=== PATIENT | female | born 1935 | race Caucasian/White ===

== ENCOUNTER → 2017-03-13 | Outpatient (CLI) | payer BC ==
[~2017-03-13] MED LIST: ASPI-435 PO; ATEN50TA8 PO; CIPR-255 PO; FLUN0.02 NAE; FLUT0.15 NAE; FURO-85 PO; HYDR-5688 PO; OMEG10007 PO; TRAM-453 PO
--- NOTE | 2017-03-13 16:17 | MAMMOGRAPHY REPORT ---
BILATERAL DIGITAL DIAGNOSTIC MAMMOGRAM TOMOSYNTHESIS WITH CAD AND TARGETED LEFT ULTRASOUND: 03/13/2017 CLINICAL HISTORY: 81-year-old woman presents with a palpable lump in the upper outer anterior left br east. There is a raised shiny skin lesion involving the upper outer 1:00 axis of the areola. No rep orted nipple discharge. TECHNIQUE: Bilateral breast tomosynthesis in addition to standard 2D mammography was performed. Curre nt study was also evaluated with a Computer Aided Detection (CAD) system. COMPARISON: Comparison is made to exams dated: 09/23/2012 mammogram, 09/21/2011 mammogram, 0 mammogram, 09/16/2009 mammogram - [facility], 09/15/2008, and 09/12/2007. BREAST COMPOSITION: The tissue of both breasts is heterogeneously dense, which may obscure small mas ses. FINDINGS: A triangular skin palpable marker overlies the upper outer anterior left breast. On the C C view, there is skin thickening appreciated. There is also thickening adjacent to the nipple in the anterior aspect of the left breast. Best appreciated on the MLO view but seen on both CC and MLO pr ojections on the tomosynthesis images, is a focal area of architectural distortion correlating with t he palpable area with central masslike area that measures 7 x 10 x 5 mm. A second more subtle questi onable area of architectural distortion is seen in the superior middle one third of the left breast, 6 cm posterior to the nipple on the MLO tomosynthesis slice 16. An increasingly prominent 6.4 x 9.9 mm asymmetry is seen in the posterior superior left breast on the MLO view, 9 cm posterior to the nip ple. There are stable coarse benign-appearing calcifications in the superior left breast. A nodular asymmetry in the medial, middle one third of the left breast on the CC view appears similar dating b ack to the 2008 exam, but appears somewhat masslike on the current exam tomosynthesis images measurin g 9.1 x 6.4 mm. Therefore, further evaluation with ultrasound will be performed throughout the super ior, lateral and medial aspects of the left breast. The right breast bregma pattern is similar to al l available prior mammograms. No obvious new mass, focal area of architectural distortion or suspici ous calcifications are seen. There are mild vascular calcifications within the right breast. Targeted ultrasound was performed throughout the left breast and also the left axilla. In the area o f palpable lump, in the 1:00 left breast, 1 cm from the nipple, there is an ill-defined hypoechoic ta ller than wide shadowing vascular mass with echogenic halo measuring 4.8 x 12.1 x 7.3 mm. This corre lates as palpated and with the focal mass and associated architectural distortion seen mammographical ly in the anterior upper outer left breast. Additional ultrasound was performed throughout the entire left breast. A second solid lobulated hypo echoic mass is identified in the approximate 2:00 left breast, 3 cm from the nipple, measuring 8.2 x 6.0 x 9.7 mm. No other discrete solid or cystic mass is seen in the left breast on ultrasound. A mo rphologically normal lymph node is seen in the left axilla with a cortex measuring 1.7 mm. In partic ular, no sonographic correlate was seen for the 9 mm nodular asymmetry in the medial, middle one thir d of the left breast and no definite correlate was seen for the 9.9 x 5.4 mm asymmetry in the superio r posterior left breast on the MLO view. No other suspicious mass, architectural distortion or cluster of microcalcifications is seen. IMPRESSION: ACR BI-RADS CATEGORY 5: HIGHLY SUGGESTIVE OF MALIGNANCY, TARGETED ULTRASOUND ACR BI-RADS CATEGORY 5: HIGHLY SUGGESTIVE OF MALIGNANCY 1. Ultrasound guided core needle biopsy is recommended for a suspicious taller than wide spiculated shadowing 12 mm mass in the 1:00 anterior left breast, that correlates with the palpable lump identif ied by the patient. Given the additional finding of thickening of the left areola near this lump it is concerning for skin and nipple/areola complex involvement. 2. A second solid suspicious mass was seen in the 2:00 left breast, which differs in morphology from the palpable mass in the 1:00 axis. This is also suspicious, warranting further evaluation with ult rasound-guided core biopsy. 3. A lymph node seen in the left axilla has a cortex within the range of normal thickness, without e vidence of suspicious lymphadenopathy. 4. Nodular asymmetries seen in the superior posterior left breast on the MLO view, and medial left b reast on the CC view had no sonographic correlate on today's ultrasound. These findings remain indet erminate. Will await pathology results and if the patient is considering breast conservation therapy , additional imaging and/or stereotactic guided biopsy may be needed. 5. Stable mammographic appearance of the right breast, without mammographic evidence of malignancy. These results and recommendations were discussed with the patient at the time of the exam. She tenta tively scheduled the left breast biopsies prior to leaving our department. Approximately 10% of breast cancers are not detected with mammography. A negative mammographic report should not delay biopsy if a clinically suggestive mass is present. Doreen Miranda M.D. ay/:03/13/2017 13:50:41 Oxygen Therapist: Linda RAZA(Elsa)(Jaja), [facility] letter sent: Abnormal 4/5 BI-RADS Code: ACR BI-RADS Category 5: Highly Suggestive Of Malignancy Ultrasound BI-RADS: ACR BI-RAD S Category 5: Highly Suggestive Of Malignancy
== END | disposition home or self-care (01) ==
LOC: C.MAMM 11:11
PROVIDERS: ATTEND Internal Medicine
DX: R92.8 Other abnormal and inconclusive findings on diagnostic imaging of breast (principal); N63 Unspecified lump in breast; N64.89 Other specified disorders of breast

== ENCOUNTER → 2017-03-15 | Outpatient (CLI) | payer BC ==
--- NOTE | 2017-03-15 13:20 | Discharge Instructions ---
Discharge Instructions Procedure Procedure Date: Mar 15, 2017. Reason for visit: Left Masses. Discharge Discharge Date: Mar 15, 2017. Discharge Diagnosis: status post breast biopsy Instructions Activity Recommendations: Additional Limitations (see below) Return to School/Work: no limitations Recommended Home Diet: No Limitations Provider Instructions: ACTIVITY RECOMMENDATIONS: * No lifting, pushing, pulling or exercising the affected side for three days. RETURN TO SCHOOL/WORK: * You may return to work/school after the procedure, but do not perform any strenuous activities for 24 to 48 hours. MEDICATIONS: * Tylenol (two 325 mg) every four to six hours if needed for mild pain (if not allergic to Tylenol). DIET: * Resume previous diet. SPECIAL CARE INSTRUCTIONS: * Keep biopsy site dry for 24 hours. May shower after 24 hours, but do not soak (bathe) incision. * May remove Tegaderm (plastic patch) tomorrow AFTER showering. * Leave the steri-strips on for one week. Allow the steri-strips to fall off by themselves. If not off after one week, you may remove them. You may place a Bandaid crosswise over the strips, if desired. * Apply ice 10 minutes on and 10 minutes off as needed. * Wear a bra at bedtime to sleep more comfortably for 2-3 days. * Your referring physician should have the results after approximately 5 to 7 business days. * Call for unusual bleeding, fever, drainage, etc or if you have any questions call during normal business hours or after hours call Dr Katz, . FOLLOW UP VISIT: Follow-up with Referring Physician as scheduled. Allergies Coded Allergies: Penicillins (Verified Allergy, Severe, THROAT SWELLING, BREATHING PROBLEMS , 01/21/16) Shellfish (Verified Allergy, Severe, BREATHING PROBLEMS, VOMITING, 01/21/16 ) Iodinated Diagnostic Agents (Unverified Allergy, Unknown, UNKNOWN, 01/21/16 ) Naga Dangelo Recommendations: Call your doctor if: * Temperature above 101 degrees * Pain not relieved by pain medicine ordered * There is increased drainage or redness from any incision * You have any unanswered questions or concerns. Your Doctors Instructions noted above were prepared by provider Eileen Katz. Patient Signature Section: Patient Instructions Signature Page Juana Arroyo Patient (or Guardian) Signature/Date: I have read and understand the instructions given to me by my caregivers. Caregiver/RN/Doctor Signature/Date: The above-named patient and/or guardian has received patient instructions on this date. + Original Patient Signature Page (only) stays with chart. Please make copy for patient.
--- NOTE | 2017-03-15 14:42 | MAMMOGRAPHY REPORT ---
THIS REPORT HAS BEEN AMENDED. ULTRASOUND GUIDED BIOPSY LEFT BREAST: 03/15/2017 CLINICAL HISTORY: Left 1:00 breast mass. PATIENT CONSENT: The procedure, risks and benefits were discussed with the patient and informed writt en consent was obtained. A timeout was performed immediately prior to the procedure. PROCEDURE DESCRIPTION: With ultrasound guidance, aseptic technique, and lidocaine as the local anesth etic (1% lidocaine to anesthetize the skin and 1% lidocaine with epinephrine to anesthetize the deepe r tissues), the mass of concern in the left 1:00 breast (labeled mass "A") was sampled 4 times with a 14-gauge Achieve biopsy needle. Immediately thereafter, with ultrasound guidance, aseptic techniqu e, and lidocaine as the local anesthetic, a metallic localizer clip was placed centrally in the mass. Direct pressure was applied to the site immediately post procedure and hemostasis was achieved. Po stprocedure unilateral mammograms were performed to confirm placement of the clip in the expected loc ation of the breast mass. The patient tolerated the procedure without complication. She was given w ound care instructions. The specimens were sent to pathology for analysis. COMPARISON: Comparison is made to exams dated: 03/13/2017 ultrasound, 03/13/2017 mammogram, 09/23/2012 m ammogram, 09/21/2011 mammogram, 09/20/2010 mammogram, and 09/16/2009 mammogram - [facility]. IMPRESSION: ULTRASOUND GUIDED BIOPSY Ultrasound guided core needle biopsy of the left 1:00 breast mass (mass "A"), with clip placement. T he patient will receive pathology results from her referring provider. Eileen Katz M.D. ah/:03/15/2017 13:21:59 Media Planner: Linda RAZA(Elsa)(Jaja), [facility] AMENDMENT: 03/21/2017 Eileen Katz M.D. Pathology results from ultrasound guided biopsies of the left breast were reviewed on 03/21/2017. 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 The pathology is concordant with the michelle ging findings. Recommend surgical consultation. Consider bilateral breast MRI if breast conserving therapy is being considered, given the presence of asymmetries seen within the left superior and medi al breast mammographically which had no sonographic correlate and therefore remain indeterminate for malignancy.
--- NOTE | 2017-03-15 14:42 | MAMMOGRAPHY REPORT ---
ULTRASOUND GUIDED BIOPSY LEFT BREAST: 03/15/2017 CLINICAL HISTORY: Left 2:00 breast mass. PATIENT CONSENT: The procedure, risks and benefits were discussed with the patient and informed writt en consent was obtained. A timeout was performed immediately prior to the procedure. PROCEDURE DESCRIPTION: With ultrasound guidance, aseptic technique, and lidocaine as the local anesth etic (1% lidocaine to anesthetize the skin and 1% lidocaine with epinephrine to anesthetize the deepe r tissues), the mass of concern in the left 2:00 breast (labeled mass "B") was sampled 4 times with a 14-gauge achieve biopsy needle. Immediately thereafter, with ultrasound guidance, aseptic technique , and lidocaine as the local anesthetic, a metallic localizer clip was placed centrally in the mass. Direct pressure was applied to the site immediately post procedure and hemostasis was achieved. Pos tprocedure unilateral mammograms were performed to confirm placement of the clip in the expected loca tion of the breast mass. The patient tolerated the procedure without complication. She was given wo und care instructions. The specimens were sent to pathology for analysis. COMPARISON: Comparison is made to exams dated: 03/13/2017 mammogram, 09/23/2012 mammogram, 09/21/2011 mammogram, and 03/13/2017 ultrasound - [facility]. IMPRESSION: ULTRASOUND GUIDED BIOPSY Ultrasound guided core needle biopsy of the left 2:00 breast mass (mass "B"), with clip placement. T he patient will receive pathology results from her referring provider. Eileen Katz M.D. ah/:03/15/2017 13:23:23 Internal Grinder Set Up Operator: Linda CAMPBELL)(Jaja), [facility]
--- NOTE | 2017-03-15 14:44 | MAMMOGRAPHY REPORT ---
UNILATERAL LEFT DIGITAL DIAGNOSTIC MAMMOGRAM: 03/15/2017 CLINICAL HISTORY: Status post left breast biopsies. TECHNIQUE: Postprocedural left CC and ML views were obtained. COMPARISON: Comparison is made to exams dated: 03/13/2017 ultrasound, 03/13/2017 mammogram, 09/23/2012 m ammogram, 09/21/2011 mammogram, and 09/16/2009 mammogram - [facility]. BREAST COMPOSITION: The tissue of the left breast is heterogeneously dense, which may obscure small masses. FINDINGS: A new ribbon-shaped biopsy marker clip is seen at the site of the biopsied mass in the lef t 1:00 breast anteriorly. A new wing-shaped biopsy marker clip is seen at the site of the biopsied e ft 2:00 breast mass. The 2 clips at approximately 2.4 cm apart. No significant postbiopsy hematoma is seen. IMPRESSION: POST PROCEDURE IMAGING FOR MARKER PLACEMENT New biopsy marker clips status post left breast ultrasound guided biopsies 2. Pathology results are pending. Approximately 10% of breast cancers are not detected with mammography. A negative mammographic report should not delay biopsy if a clinically suggestive mass is present. Eileen Katz M.D. /:03/15/2017 13:31:13 Prison Guard Supervisor: Linda RAZA(Elsa)(M), [facility] BI-RADS Code: Post Procedure Imaging For Marker Placement
== END | disposition home or self-care (01) ==
LOC: C.MAMM 12:41
PROVIDERS: ATTEND Internal Medicine
DX: C50.912 Malignant neoplasm of unspecified site of left female breast (principal)

== ENCOUNTER → 2017-04-24 | Outpatient (CLI) | payer BC ==
[~2017-04-24] MED LIST changes: +GADAVIST IV PRN
--- NOTE | 2017-04-24 15:59 | MAMMOGRAPHY REPORT ---
BREAST MRI OF BOTH BREASTS : 04/24/2017 CLINICAL HISTORY: Recently diagnosed left breast cancer in the 1:00 and 2:00 axes. Additional asymme tries are identified mammographically for which no sonographic correlates were identified. Patient p resents for definitive characterization prior to surgery, and to assess for extent of disease. COMPARISON: Comparison is made to exams dated: 03/15/2017 ultrasound biopsy, 03/15/2017 ultrasound biops y, 03/13/2017 ultrasound, 03/13/2017 mammogram, 09/23/2012 mammogram, and 09/21/2011 mammogram - [facility]. TECHNIQUE: Using a 1.5 Carito magnet and dedicated breast coil, multisequence axial images were obtain ed through the breasts. After uneventful IV administration of 7 mL of Gadavist, dynamic multiphase c ontrast-enhanced axial images, and sagittal postcontrast were obtained. Temporal subtraction axial i mages and 3-D MIP images are provided. Everything was then reviewed on a 3-D workstation, [employer]. FINDINGS: Right breast: There is no significant background parenchymal enhancement. No suspicious enhancing ma ss, non-mass enhancement, focal area of architectural distortion or suspicious kinetics are identifie d in the right breast. No right axillary, subpectoral intramammary lymph adenopathy is seen. Left breast: There are at least 5 suspicious enhancing masses within the left breast, all of which ap pear located within the upper outer quadrant, but one of which involves the nipple areola complex. T he masses span from the nipple into the 12:00 far posterior aspect of the left breast located [address] to the nipple. In particular: There is an irregular enhancing, 4.7 x 6.5 x 5.1 mm mass in the 1 2:00 posterior left breast. A small, 2.8 x 4.4 mm focus of enhancement and associated architectural distortion in the 12:30 middle to posterior left breast approximately 7.5 cm distal to the nipple. A multilobulated, 6.1 x 8.0 x 16.6 mm mass in the approximate 2:00 left breast. This mass has adjacen t susceptibility artifact and likely represents the biopsy marker clip. It has associated mixed pers istent, plateau and washout kinetics. Another mass with associated susceptibility artifact represent ing a biopsy marker clip is identified in the 1:00 anterior left breast. This has associated spicula tion and architectural distortion, measuring 11.8 x 8.5 x 6.3 mm, and associated persistent kinetics. There is thickening and enlargement of the left nipple when compared to the right, with associated enhancement and probable enhancing mass within the nipple and skin of the areola measuring approximat pradeep 19.3 x 8.4 x 9.2 m. This has associated persistent, plateau and washout kinetics. No suspicious left axillary, subpectoral or internal mammary lymphadenopathy is seen. Incidental note is made of a 2.3 cm T2 hyperintense nonenhancing cyst within the anterior liver. Thi s was previously described on a prior abdominal ultrasound report. IMPRESSION: ACR BI-RADS CATEGORY 4B: INTERMEDIATE SUSPICION FOR MALIGNANCY 1. There are at least 5 suspicious enhancing masses in the left breast confined to the upper outer q uadrant, compatible with multifocal disease. One of the masses is seen within the left nipple and ar eola complex and the most distal is located in the 12:00 axis, 9 cm from the nipple. If breast conse rvation therapy is desired, would consider targeted second look ultrasound and ultrasound guided core biopsy to evaluate for the most distal mass in the 12:00 axis, 9 cm from the nipple, for confirmatio n. 2. No suspicious left or right axillary, subpectoral or internal mammary lymphadenopathy. 3. No MRI evidence of malignancy in the right breast. The patient will be called to schedule an appointment. Doreen Miranda M.D. ay/:04/24/2017 15:39:59 Energy Consultant: leather flesher, [facility] letter sent: Abnormal 4/5 BI-RADS Code: ACR BI-RADS Category 4B: Intermediate Suspicion For Malignancy
== END | disposition home or self-care (01) ==
LOC: C.MRI 08:32
PROVIDERS: ATTEND Surgery
DX: C50.919 Malignant neoplasm of unspecified site of unspecified female breast (principal); N63 Unspecified lump in breast

== ENCOUNTER 2017-05-09 08:30 | Inpatient (IN) | payer BC, OTHER ==
[2017-04-26 13:42] VITALS: BMI 22.0
--- NOTE | 2017-04-26 14:08 | PAT Medication Instructions ---
Service Date Apr 26, 2017. Current Home Medication List Aspirin (Aspirin 81), 81 MG PO 2XWEEK Atenolol (Tenormin), 50 MG PO Q2D Furosemide (Lasix), 20 MG PO PRN Medication Instructions For Your Scheduled Surgery - Check with surgeon for instructions: Aspirin (Aspirin 81), 81 MG PO 2XWEEK - Hold the following medications the morning of surgery: Furosemide (Lasix), 20 MG PO PRN - Take the following medications the morning of surgery with a sip of water: Atenolol (Tenormin), 50 MG PO Q2D - Take the following medications as scheduled the night before surgery: Furosemide (Lasix), 20 MG PO PRN If you have any questions please call us at [phone] or [phone] or [phone]
[~2017-05-09] VITALS: Ht 170.2 cm; Wt 64.8 kg
[2017-05-09] VITALS (7 sets, daily range): BP systolic 155–202; BP diastolic 67–81; PULSE 63–76; TEMP 36.4–37.2; O2SAT 94–98; Ht 170.2 cm; Wt 64.8 kg
[~2017-05-09 08:30] MED LIST changes: -CIPR-255 PO; +CLINDAMYCIN IV 900 MG in DEXTROSE 5% 100ML 100 ML IV SCH; -FLUN0.02 NAE; -FLUT0.15 NAE; -GADAVIST IV PRN; -HYDR-5688 PO; +LACTATED RINGER'S 1000ML 1,000 ML IV SCH; -OMEG10007 PO; -TRAM-453 PO
[2017-05-09] MEDS ORDERED: FENTANYL CITRATE INJ 50 MCG/1 ML 2 ML VIAL ONE ×3 (08:53→11:56)
[2017-05-09] MEDS ORDERED: DEXAMETHASONE SOD INJ 4 MG/ML VIAL ONE (08:53)
[2017-05-09] MEDS ORDERED: ONDANSETRON INJ 2 MG/ML 2 ML VIAL ONE (08:53)
[2017-05-09] MEDS ORDERED: PROPOFOL IV EMULSION 10 MG/ML 20 ML VIAL IV ONE (08:53)
[2017-05-09] MEDS ORDERED: LIDOCAINE HCL 2% 2 ML VIAL (20MG/ML) ONE (08:53)
[2017-05-09] MEDS ORDERED: EpHEDrine SULFATE INJ 50 MG/ML AMP IV PRN (09:30)
[2017-05-09] MEDS ORDERED: HYDROmorphone INJ 1 MG/ML SYR IV PRN (09:30)
[2017-05-09] MEDS ORDERED: ONDANSETRON INJ 2 MG/ML 2 ML VIAL IV PRN ×2 (09:30→12:45)
[2017-05-09] MEDS ORDERED: ATROPINE SULFATE 0.1 MG/ML 5ML SYR IV PRN (09:30)
--- NOTE | 2017-05-09 09:53 | DIAGNOSTIC IMAGING REPORT ---
LEFT BREAST LYMPHOSCINTIGRAPHY INJECTION CLINICAL HISTORY: Left breast carcinoma COMPARISON STUDY: None FINDINGS: A timeout was performed. 5 periareolar injections utilizing a total of 0.5 mCi of technetium 99m Lymphoseek were performed. The patient was sent to the operating room for intraoperative localization. IMPRESSION: Successful left breast lymphoscintigraphy injection. Electronically signed by: Abdullahi Ware M.D. 05/09/2017 9:52 AM Dictated Date/Time: 05/09/2017 9:50 AM
[2017-05-09] MEDS ORDERED: ISOSULFAN BLUE 10 MG/ML VIAL 5 ML ONE (10:08)
[2017-05-09] MEDS ORDERED: BUPIVACAINE 0.5 % 5 MG/1 ML MPF 30ML VIAL ONE (10:08)
--- NOTE | 2017-05-09 10:10 | History & Physical Bridge Note ---
H&P Re-Evaluation Bridge Note: I have examined the patient, reviewed the History & Physical and in the interval since the performance of the History & Physical I have noted the following changes of clinical significance: No changes noted
[2017-05-09] MEDS ORDERED: LACTATED RINGER'S 1000ML 1,000 ML IV SCH (12:32)
--- NOTE | 2017-05-09 12:32 | [facility] Operative Report ---
Operative Report Operative Date May 09, 2017. Pre-Operative Diagnosis Left Breast Cancer Post-Operative Diagnosis Left Breast Cancer Procedure(s) Performed Left Breast Mastectomy with Left [place] Lymph Node Biopsy (Injection Only) and Lt axillary dissection Surgeon Nuclear Operator Surgeon(s) Roberto Corbin PA-C Estimated Blood Loss 20 ML Findings 2 SLNs- 1 mm focus of carcinoma Specimens B. Left axillary tissue silk suture on superior lymph node Drains 2- #15 Rd ONEL drains Anesthesia gen Complication(s) None Disposition Recovery Room / PACU I attest to the content of the Intraoperative Record and any orders documented therein. Any exceptions are noted below.
[2017-05-09] MEDS ORDERED: HYDROCODONE/ACETAMOPHEN 5/325MG TAB PO PRN ×2 (12:45)
[2017-05-09] MEDS ORDERED: MoRPHine SULFATE 4 MG/ML 1 ML CARP\\VIAL IV PRN (12:45)
[2017-05-09] MEDS ORDERED: MoRPHine SULFATE 2 MG/ML CARP IV PRN (12:45)
[2017-05-09] MEDS ORDERED: LABETALOL HCL IV 5 MG/ML 20ML IV ONE (13:08)
[2017-05-09] MEDS: FENTANYL CITRATE INJ 50 MCG/1 ML 2 ML VIAL IV PRN ×3 (13:21→13:38)
--- NOTE | 2017-05-09 13:26 | OPERATIVE REPORT ---
DATE OF OPERATION: 05/09/2017 NAME OF OPERATION: Left mastectomy with sentinel lymph node biopsy and left axillary dissection. PREOPERATIVE DIAGNOSIS: Left breast cancer. POSTOPERATIVE DIAGNOSIS: Same. STAFF SURGEON: Dr. Obinna Bray. LICENSE AND PERMIT SPECIALIST: Minh Corbin PA-C ANESTHESIA: General. DESCRIPTION OF PROCEDURE: The patient was brought into the operating room and placed on the operating table in supine position. Her left chest and axilla were prepped and draped in the usual fashion. The patient had injection and radiology for sentinel lymph node biopsy. Incision was made in the left axilla, carrying dissection down, identifying the sentinel lymph node. Two nodes were actually identified and sent. There was a 1-mm focus of metastatic carcinoma within the lymph nodes. At the end of the case, we did do a completion axillary dissection with additional tissue sent. The highest lymph node or superior lymph node had a silk suture placed on it. During the frozen section, we did proceed with mastectomy, making an elliptical incision around the nipple areolar complex to the sternum from the axilla and then dissecting the breast tissue away from the subcutaneous tissue superiorly and inferiorly to construct superior and inferior skin flaps. The breast tissue was dissected away from the pectoralis major muscle, taking the fascia. The specimen was marked as left breast tissue with a long silk suture lateral. The site was irrigated. Two #15 Dilip-Arizmendi drains were placed, 1 in the chest wall and 1 into the axilla and secured to the skin using 3-0 nylon suture. As a note again, completion left axillary dissection was performed. The subcutaneous tissue was reapproximated using interrupted 3-0 Vicryl suture. Skin reapproximated using 4-0 Monocryl suture and interrupted 4-0 nylon suture in the axilla. Steri-Strips were applied and dressing applied. The patient was transferred to recovery room in stable condition. I attest to the content of the Intraoperative Record and any orders documented therein. Any exception s are noted below.
--- NOTE | 2017-05-09 13:49 | Anesthesiology Progress Note ---
Anesthesia Post Op Note Date & Time May 09, 2017 at 13:48 Vital Signs Pain Intensity: 4 Vital Signs Past 12 Hours Date Time Temp Pulse Resp B/P (MAP) Pulse Ox O2 Delivery O2 Flow Rate FiO2 05/09/17 12:37 36.5 97 12 170/83 99 Mask 10 05/09/17 09:34 37.2 63 18 202/72 (115) 96 Room Air Notes Mental Status: alert / awake / arousable, participated in evaluation Pt Amnestic to Procedure: Yes Nausea / Vomiting: adequately controlled Pain: adequately controlled Airway Patency, RR, SpO2: stable & adequate BP & HR: stable & adequate Hydration State: stable & adequate Anesthetic Complications: no major complications apparent
--- NOTE | 2017-05-09 15:52 | Medical Consult ---
Consultation Date of Consultation: May 09, 2017. Attending Physician: Obinna Bray M.D. Reason for Consultation: Post-operative Medical Management History of Present Illness Mrs. Arroyo is a pleasant 81yo female with a history of hypertension and left breast cancer s/p left breast mastectomy w/ left sentinel node biopsy and left axillary dissection under general anesthesia by Dr. Bray on 05/09/17. Hospitalist service was consulted for general medical management. Daughter is at the bedside. Currently, she is pain-free without any complaints. Denies shortness of breath. Dressing is comfortable. Denies fever, chills, cp, palpitations, sob, abdominal pain, n/v/d, numbness/ tingling or calf pain. Her only reported medical history is HTN. She states that she takes Atenolol, approximately every other days. The states that some days she gets slightly lightheaded and attributes this to the medication and as such has structured her regimen in this manner. She also takes ASA 2 days per week, on no particular schedule. States it is for prevention only. She has no history of coronary artery disease or cardiac stenting. She also takes Lasix PRN only for leg and abdominal swelling though at this time, she denies feeling any fullness. Past Medical/Surgical History Medical Problems: (1) Epistaxis Status: Acute (2) Post-operative hemorrhage Status: Acute Family History Patient reports no known family medical history. Social History Smoking Status: Never Smoker Smokeless Tobacco Use: No Alcohol Use: none Drug Use: none Marital Status: Housing Status: lives with significant other Occupation Status: retired Allergies Coded Allergies: Penicillins (Verified Allergy, Severe, THROAT SWELLING, BREATHING PROBLEMS , 05/09/17) Shellfish (Verified Allergy, Severe, BREATHING PROBLEMS, VOMITING, 05/09/17) DO Inhibitors (Verified Allergy, Unknown, UNKNOWN, 05/09/17) Angiotensin Receptor Blockers (Verified Allergy, Unknown, UNKNOWN, 05/09/17) Calcium Channel Blockers (Verified Allergy, Unknown, UNKNOWN, 05/09/17) Hydrochlorothiazide (Verified Allergy, Unknown, UNKNOWN, 05/09/17) Iodinated Diagnostic Agents (Verified Allergy, Unknown, BREATHING PROBLEMS VOMITING, 05/09/17) Home Medications 1. Atenolol 50mg PO every other day, but holds for shortness of breath 2. Aspirin 81mg PO twice a week 3. Furosemide 20mg PO prn edema Current Inpatient Medications Current Inpatient Medications Medications (Trade) Dose Ordered Sig/Patricia Route Start Time Stop Time Status Last Admin Dose Admin Clindamycin Phosphate 900 mg/ Dextrose 106 ml @ 106 mls/hr PREOP IV 05/09/17 06:00 05/10/17 05:59 05/09/17 10:35 106 MLS/HR Atenolol (Tenormin Tab) 50 mg Q2D@0900 PO 05/11/17 09:00 06/10/17 08:59 Lactated Ringer's 1,000 ml @ 50 mls/hr Q20H IV 05/09/17 12:32 05/09/17 16:00 Clindamycin Phosphate 600 mg/ Dextrose 54 ml @ 100 mls/hr Q8H IV 05/09/17 18:00 05/19/17 17:59 Acetaminophen/ Hydrocodone Bitart ([place] 5/325 Tab) 1 tab Q4 PRN PO 05/09/17 12:45 05/23/17 12:44 Acetaminophen/ Hydrocodone Bitart ([place] 5/325 Tab) 2 tab Q4 PRN PO 05/09/17 12:45 05/23/17 12:44 Morphine Sulfate (MoRPHine SULFATE INJ) 2 mg Q4H PRN IV 05/09/17 12:45 05/23/17 12:44 Morphine Sulfate (MoRPHine SULFATE INJ) 4 mg Q4H PRN IV 05/09/17 12:45 05/23/17 12:44 Ondansetron HCl (Zofran Inj) 4 mg Q6H PRN IV 05/09/17 12:45 06/08/17 12:44 Review of Systems Constitutional: No fever, No chills Eyes: No worsening of vision, No diplopia ENT: No sore throat, No trouble swallowing Respiratory: No cough, No shortness of breath Cardiovascular: No chest pain, No palpitations Abdomen: No pain, No nausea, No vomiting, No diarrhea Musculoskeletal: No joint pain, No calf pain Neurologic: No paralysis, No numbness/tingling Physical Exam Date Time Temp Pulse Resp B/P (MAP) Pulse Ox O2 Delivery O2 Flow Rate FiO2 05/09/17 14:42 75 16 182/80 (114) 96 Nasal Cannula 2.0 05/09/17 14:10 Nasal Cannula 2.0 05/09/17 14:10 36.4 76 18 170/81 (110) 94 Nasal Cannula 2.0 2/17 14:10 Nasal Cannula 2.0 05/09/17 13:57 76 32 05/09/ 13:57 76 32 94 2/17 13:56 165/78 05/09/17 13:52 74 24 2/17 13:52 74 24 95 05/09/17 13:51 168/76 05/09/17 13:50 36.6 75 18 168/76 97 Nasal Cannula 2 05/09/17 13:47 75 18 96 05/09/17 13:47 75 18 05/09/17 13:46 177/76 05/09/17 13:42 76 21 95 05/09/17 13:42 76 21 05/09/17 13:41 169/76 05/09/17 13:37 75 21 05/09/17 13:37 75 21 97 05/09/17 13:36 171/80 05/09/17 13:32 78 17 05/09/17 13:32 79 17 95 05/09/17 13:31 172/95 05/09/17 13:27 74 23 05/09/17 13:27 74 23 96 05/09/17 13:26 178/85 05/09/17 13:22 76 20 05/09/17 13:22 76 20 95 05/09/17 13:21 177/78 05/09/17 13:17 75 18 95 05/09/17 13:17 75 18 05/09/17 13:16 173/85 05/09/17 13:12 74 18 94 05/09/17 13:12 74 18 17 13:11 174/87 05/09/17 13:07 74 28 05/09/17 13:07 73 28 94 05/09/ 13:06 189/81 05/09/17 13:02 73 31 05/09/17 13:02 73 31 94 05/09/17 13:01 175/87 05/09/17 12:57 74 27 05/09/17 12:57 74 27 97 2 12:56 191/88 05/09/17 12:52 73 22 17 12:52 73 22 96 05/09/17 12:51 192/86 05/09/17 12:47 73 18 97 05/09/17 12:47 73 18 05/09/17 12:46 196/91 05/09/17 12:42 72 25 100 05/09/17 12:42 72 25 05/09/17 12:41 189/87 05/09/17 12:38 170/83 05/09/17 12:37 73 17 05/09/17 12:37 73 17 99 05/09/17 12:37 36.5 97 12 170/83 99 Mask 10 05/09/17 09:34 37.2 63 18 202/72 (115) 96 Room Air General Appearance: WD/WN, no apparent distress Head: normocephalic, atraumatic Eyes: normal inspection, EOMI ENT: hearing grossly normal, pharynx normal Neck: supple, no adenopathy, no JVD Respiratory/Chest: lungs clear, no respiratory distress, + pertinent finding ( Thorax wrapped in post-operative dressing; dry, intact, no evidence of discharge ) Cardiovascular: regular rate, rhythm, no gallop, no murmur Abdomen/GI: normal bowel sounds, non tender, soft Back: normal inspection, no muscle spasm Extremities/Musculoskelatal: no calf tenderness, no pedal edema Neurologic/Psych: alert, normal mood/affect, oriented x 3 Skin: normal color, warm/dry, no rash Lymphatic: no adenopathy Assessment & Plan This is a 81yo female with a history of hypertension and left breast cancer s/p left breast mastectomy w/ left sentinel node biopsy and left axillary dissection under general anesthesia by Dr. Bray on 05/09/17. Medically stable at this time. Our plan is as follows: Plan: Left breast cancer s/p left breast mastectomy w/ left sentinel node biopsy and left axillary dissection - Post-op day 0 - Dressing changes per surgery - Currently pain is well managed; titrate per primary surgical team - HOLD aspirin 81mg until discharge as patient is not using for secondary prevention of CAD - Encouraged incentive spirometry to improve airway clearance Hypertension - Elevated BP post-operative, systolic 180s - Pain appears to be well controlled; likely due to not having gotten dose - Will re-start atenolol 50mg PO every other day, hold for BP <100/60 or HR <60 If tomorrow BP remain elevated, additional dose can be given then Lower extremity edema - No evidence of edema at this time; continue watch in the setting of surgery and hemodynamic shifts - No need to give Lasix at this time; continue to hold at this time DVT prophylaxis - SCD - Encourage ambulate as tolerated - Hold pharmacological anticoagulation today as patient is immediately post-op. Can be re-started at discretion of primary surgical team Thank you for allowing us to participate in the care of this patient. We will continue to follow. Attending Addendum: I have supervised the medical residents activities, and agree with the H&P as noted above with the following exceptions: NONE The patient is awake, well-developed and adequately nourished, alert and oriented 3, normocephalic and atraumatic, lying in bed and in no acute distress. HEENT--PERRL, EOMI, mucous membranes and oropharynx dry. Neck--supple, no JVD or bruits, thyroid normal, trachea midline, no adenopathy. Heart--normal S1 and S2, no extra beats, no murmurs, rubs or gallops. Lungs/Thorax--clear bilaterally but diminished throughout, no respiratory distress, no accessory muscle use, thorax wrapped in postoperative dressing is clean, dry and intact. Abdomen--normal bowel sounds and soft, nontender and nondistended, no hernias or masses, no organomegaly. Extremities--no cyanosis, clubbing or edema. There are good distal pulses b/l. Dermatologic--normal skin turgor, normal color, warm and dry, no abnormal lymph nodes, no rash. Neurologic--cranial nerves II through XII grossly intact, motor and sensory examination normal. Rheumatologic--normal range of motion, nontender, muscles and joints. Psychiatric--normal affect. Assessment and Plan: 1. The patient is seen status post left breast mastectomy with left sentinel node biopsy and left axillary dissection for left breast cancer--medically stable. 2. Hypertension/lower extremity edema--restart atenolol 50 mg by mouth daily with usual hold parameters. Not necessary to restart aspirin 81 mg by mouth daily at this time. Edema may be in part secondary to increased hydrostatic pressure, would hold down sodium intake at this point, keep legs elevated when upright, and follow closely.
[2017-05-09] MEDS: CLINDAMYCIN IV 600 MG in DEXTROSE 5% 50ML 50 ML IV SCH (18:35)
[2017-05-10] MEDS: CLINDAMYCIN IV 600 MG in DEXTROSE 5% 50ML 50 ML IV SCH ×3 (01:48→17:55)
[2017-05-10 02:58] VITALS: BP 157/64; PULSE 65; TEMP 36.9; O2SAT 98
[2017-05-10 05:55] LABS: BUN/CREATININE RATIO 14.4 (10-20); CREATININE 0.79 mg/dl (0.60-1.20)
--- NOTE | 2017-05-10 06:01 | Surgery Progress Note ---
Surgery Progress Note Date of Service May 10, 2017. Subjective + feeling well, + pain controlled serosang drainage from JPs Objective Vital Signs: Date Time Temp Pulse Resp B/P (MAP) Pulse Ox O2 Delivery O2 Flow Rate FiO2 05/10/17 02:58 36.9 65 19 157/64 (95) 98 Room Air 05/09/17 23:28 Nasal Cannula 2.0 05/09/17 22:56 36.8 67 19 155/67 (96) 96 Nasal Cannula 2.0 05/09/17 19:14 36.7 67 16 166/69 (101) 95 Nasal Cannula 2.0 05/09/17 17:09 36.7 69 16 172/73 (106) 97 Nasal Cannula 2.0 05/09/17 15:19 36.8 72 18 178/73 (108) 98 Nasal Cannula 2.0 05/09/17 14:42 75 16 182/80 (114) 96 Nasal Cannula 2.0 05/09/17 14:10 Nasal Cannula 2.0 05/09/17 14:10 36.4 76 18 170/81 (110) 94 Nasal Cannula 2.0 05/09/17 14:10 Nasal Cannula 2.0 05/09/17 14:10 Nasal Cannula 2.0 05/09/17 13:57 76 32 05/09/17 13:57 76 32 94 05/09/17 13:56 165/78 05/09/17 13:52 74 24 05/09/17 13:52 74 24 95 05/09/17 13:51 168/76 05/09/17 13:50 36.6 75 18 168/76 97 Nasal Cannula 2 05/09/17 13:47 75 18 96 05/09/17 13:47 75 18 05/09/17 13:46 177/76 05/09/17 13:42 76 21 95 05/09/17 13:42 76 21 05/09/17 13:41 169/76 05/09/17 13:37 75 21 05/09/17 13:37 75 21 97 05/09/17 13:36 171/80 05/09/17 13:32 78 17 05/09/17 13:32 79 17 95 05/09/17 13:31 172/95 05/09/17 13:27 74 23 05/09/17 13:27 74 23 96 05/09/17 13:26 178/85 05/09/17 13:22 76 20 05/09/17 13:22 76 20 95 05/09/17 13:21 177/78 05/09/17 13:17 75 18 95 05/09/17 13:17 75 18 05/09/17 13:16 173/85 05/09/17 13:12 74 18 94 05/09/17 13:12 74 18 05/09/17 13:11 174/87 05/09/17 13:07 74 28 05/09/17 13:07 73 28 94 05/09/17 13:06 189/81 05/09/17 13:02 73 31 05/09/17 13:02 73 31 94 05/09/17 13:01 175/87 05/09/17 12:57 74 27 05/09/17 12:57 74 27 97 05/09/17 12:56 191/88 05/09/17 12:52 73 22 05/09/17 12:52 73 22 96 05/09/17 12:51 192/86 05/09/17 12:47 73 18 97 05/09/17 12:47 73 18 05/09/17 12:46 196/91 05/09/17 12:42 72 25 100 05/09/17 12:42 72 25 05/09/17 12:41 189/87 05/09/17 12:38 170/83 05/09/17 12:37 73 17 05/09/17 12:37 73 17 99 05/09/17 12:37 36.5 97 12 170/83 99 Mask 10 05/09/17 09:34 37.2 63 18 202/72 (115) 96 Room Air General Appearance: no apparent distress Respiratory/Chest: no respiratory distress Incision(s): dry, intact Laboratory Results: Results Past 24 Hours Test 05/10/17 04:29 Range/Units Sodium Level 138 136-145 mmol/L Potassium Level 5.0 3.5-5.1 mmol/L Chloride Level 103 98-107 mmol/L Carbon Dioxide Level 32 21-32 mmol/L Anion Gap 3.0 3-11 mmol/L Blood Urea Nitrogen 11 7-18 mg/dl Creatinine 0.79 0.60-1.20 mg/dl Est Creatinine Clear Calc Drug Dose 53.4 ml/min Estimated GFR () 80.8 Estimated GFR (Non- 69.7 BUN/Creatinine Ratio 14.4 10-20 Random Glucose 110 70-99 mg/dl Calcium Level 9.0 8.5-10.1 mg/dl Assessment & Plan 05/10/17- s/p Lt mastectomy with sentinel lymph node bx and Lt axillary dissection- overall doing well, minimal pain mobilize pt, cont atbx, leave drains- plan d/c 05/11
[2017-05-10 06:18] LABS: HEMATOCRIT 44.3 % (37-47); MEAN CELL VOLUME 88.2 fL (80-100); MEAN CORPUSCULAR HEMOGLOBIN 26.9 pg (25-34); MEAN CORPUSCULAR HGB CONC 30.5 g/dl (32-36); PLATELET COUNT 281 K/uL (130-400); PLT ESTIMATE NORMAL; RED BLOOD COUNT 5.02 M/uL (4.2-5.4); WHITE BLOOD COUNT 20.41 K/uL (4.8-10.8)
[2017-05-10 07:30] VITALS: BP 172/78; PULSE 62; TEMP 36.7; O2SAT 96
--- NOTE | 2017-05-10 08:39 | Anesthesiology Progress Note ---
Anesthesia Post Op Note Date & Time May 10, 2017 at 08:39 Vital Signs Pain Intensity: 0.0 Vital Signs Past 12 Hours Date Time Temp Pulse Resp B/P (MAP) Pulse Ox O2 Delivery O2 Flow Rate FiO2 05/10/17 07:30 36.7 62 14 172/78 (109) 96 Room Air 05/10/17 02:58 36.9 65 19 157/64 (95) 98 Room Air 05/09/17 23:28 Nasal Cannula 2.0 05/09/17 22:56 36.8 67 19 155/67 (96) 96 Nasal Cannula 2.0 Notes Mental Status: alert / awake / arousable Pt Amnestic to Procedure: Yes Nausea / Vomiting: adequately controlled Pain: adequately controlled Airway Patency, RR, SpO2: stable & adequate BP & HR: stable & adequate Hydration State: stable & adequate
--- NOTE | 2017-05-10 10:01 | Family Medicine Progress Note ---
Progress Note Date of Service May 10, 2017. Subjective Pt evaluation today including: conversation w/ patient, physical exam, chart review, lab review Pain: None PO Intake: Good Voiding: no voiding problems Doing well Pain well controlled Dr. Bray seen patient earlier today; no reported concerns at this time per his progress note Eating well; will try to ambulate today; no voiding issues Constitutional: No fever, No chills, No sweats Eyes: No worsening of vision, No eye pain, No redness ENT: No hearing loss, No unusual epistaxis, No nasal symptoms, No sore throat Respiratory: No cough, No sputum, No wheezing Cardiovascular: No chest pain, No orthopnea, No claudication, No palpitations Abdomen: No pain, No nausea, No vomiting, No diarrhea, No constipation Musculoskeletal: No joint pain, No muscle pain, No swelling Female : No dysuria, No urinary frequency Neurologic: No memory loss, No weakness, No numbness/tingling Psychiatric: No depression symptoms, No anxiety, No insomnia Heme: No abnormal bleeding/bruising, No clotting problems, No swollen lymph nodes Endo: No fatigue Skin: No rash, No new/changing skin lesions, No color change Medications Current Inpatient Medications Medications (Trade) Dose Ordered Sig/Patricia Route Start Time Stop Time Status Last Admin Dose Admin Atenolol (Tenormin Tab) 50 mg Q2D@0900 PO 05/11/17 09:00 06/10/17 08:59 Clindamycin Phosphate 600 mg/ Dextrose 54 ml @ 100 mls/hr Q8H IV 05/09/17 18:00 05/19/17 17:59 05/10/17 01:48 100 MLS/HR Acetaminophen/ Hydrocodone Bitart ([place] 5/325 Tab) 1 tab Q4 PRN PO 05/09/17 12:45 05/23/17 12:44 Acetaminophen/ Hydrocodone Bitart ([place] 5/325 Tab) 2 tab Q4 PRN PO 05/09/17 12:45 05/23/17 12:44 Morphine Sulfate (MoRPHine SULFATE INJ) 2 mg Q4H PRN IV 05/09/17 12:45 05/23/17 12:44 Morphine Sulfate (MoRPHine SULFATE INJ) 4 mg Q4H PRN IV 05/09/17 12:45 05/23/17 12:44 Ondansetron HCl (Zofran Inj) 4 mg Q6H PRN IV 05/09/17 12:45 06/08/17 12:44 Atenolol (Tenormin Tab) 25 mg NOW ONCE PO 05/10/17 10:00 05/10/17 10:01 Objective Vital Signs Date Time Temp Pulse Resp B/P (MAP) Pulse Ox O2 Delivery O2 Flow Rate FiO2 05/10/17 07:30 36.7 62 14 172/78 (109) 96 Room Air 05/10/17 02:58 36.9 65 19 157/64 (95) 98 Room Air 05/09/17 23:28 Nasal Cannula 2.0 05/09/17 22:56 36.8 67 19 155/67 (96) 96 Nasal Cannula 2.0 05/09/17 19:14 36.7 67 16 166/69 (101) 95 Nasal Cannula 2.0 05/09/17 17:09 36.7 69 16 172/73 (106) 97 Nasal Cannula 2.0 05/09/17 15:19 36.8 72 18 178/73 (108) 98 Nasal Cannula 2.0 05/09/17 14:42 75 16 182/80 (114) 96 Nasal Cannula 2.0 05/09/17 14:10 Nasal Cannula 2.0 05/09/17 14:10 36.4 76 18 170/81 (110) 94 Nasal Cannula 2.0 05/09/17 14:10 Nasal Cannula 2.0 05/09/17 14:10 Nasal Cannula 2.0 05/09/17 13:57 76 32 05/09/17 13:57 76 32 94 05/09/17 13:56 165/78 05/09/17 13:52 74 24 05/09/17 13:52 74 24 95 05/09/17 13:51 168/76 05/09/17 13:50 36.6 75 18 168/76 97 Nasal Cannula 2 05/09/17 13:47 75 18 96 05/09/17 13:47 75 18 05/09/17 13:46 177/76 05/09/17 13:42 76 21 95 05/09/17 13:42 76 21 05/09/17 13:41 169/76 05/09/17 13:37 75 21 05/09/17 13:37 75 21 97 05/09/17 13:36 171/80 05/09/17 13:32 78 17 05/09/17 13:32 79 17 95 05/09/17 13:31 172/95 05/09/17 13:27 74 23 05/09/17 13:27 74 23 96 05/09/17 13:26 178/85 05/09/17 13:22 76 20 05/09/17 13:22 76 20 95 05/09/17 13:21 177/78 05/09/17 13:17 75 18 95 05/09/17 13:17 75 18 05/09/17 13:16 173/85 05/09/17 13:12 74 18 94 05/09/17 13:12 74 18 05/09/17 13:11 174/87 05/09/17 13:07 74 28 05/09/17 13:07 73 28 94 05/09/17 13:06 189/81 05/09/17 13:02 73 31 05/09/17 13:02 73 31 94 05/09/17 13:01 175/87 05/09/17 12:57 74 27 05/09/17 12:57 74 27 97 05/09/17 12:56 191/88 05/09/17 12:52 73 22 05/09/17 12:52 73 22 96 05/09/17 12:51 192/86 05/09/17 12:47 73 18 97 05/09/17 12:47 73 18 05/09/17 12:46 196/91 05/09/17 12:42 72 25 100 05/09/17 12:42 72 25 05/09/17 12:41 189/87 05/09/17 12:38 170/83 05/09/17 12:37 73 17 05/09/17 12:37 73 17 99 05/09/17 12:37 36.5 97 12 170/83 99 Mask 10 Physical Exam General Appearance: WD/WN, no apparent distress Eyes: normal inspection, EOMI ENT: hearing grossly normal, pharynx normal Neck: supple, no adenopathy, no JVD Respiratory/Chest: lungs clear, no respiratory distress, + pertinent finding ( Thorax dressed; ONEL drains x 2 with mild bloody dischge; no pus) Cardiovascular: regular rate, rhythm, no gallop, no murmur Abdomen: normal bowel sounds, non tender, soft Extremities: non-tender, no pedal edema Neurologic/Psychiatric: alert, normal mood/affect, oriented x 3 Skin: normal color, warm/dry, no rash Lymphatic: no adenopathy Laboratory Results Last 24 Hours Test 05/10/17 04:29 White Blood Count 20.41 K/uL Red Blood Count 5.02 M/uL Hemoglobin 13.5 g/dL Hematocrit 44.3 % Mean Corpuscular Volume 88.2 fL Mean Corpuscular Hemoglobin 26.9 pg Mean Corpuscular Hemoglobin Concent 30.5 g/dl RDW Standard Deviation 67.8 fL RDW Coefficient of Variation 21.6 % Platelet Count 281 K/uL Platelet Estimate NORMAL Sodium Level 138 mmol/L Potassium Level 5.0 mmol/L Chloride Level 103 mmol/L Carbon Dioxide Level 32 mmol/L Anion Gap 3.0 mmol/L Blood Urea Nitrogen 11 mg/dl Creatinine 0.79 mg/dl Est Creatinine Clear Calc Drug Dose 53.4 ml/min Estimated GFR () 80.8 Estimated GFR (Non- 69.7 BUN/Creatinine Ratio 14.4 Random Glucose 110 mg/dl Calcium Level 9.0 mg/dl Assessment and Plan This is a 81 yo female with HTN, day 1 s/p left breast mastectomy w/ left sentinel node biopsy and left axillary dissection. Currently, she is doing very well at this time: Plan: Left breast cancer s/p left breast mastectomy w/ left sentinel node biopsy and left axillary dissection - Post-op day 1 - Dressing changes per surgery; encourage ambulation - Currently pain is well managed; titrate per primary surgical team - Continue holding ASA as she uses it elective Leukocytosis - WBC 20 today; no fevers or systemic ssx - Likely 2/2 steroid pre-operatively along with systemic stress of surgery; appears well - Recommend monitoring CBC daily Hypertension - Elevated BP post-operative, systolic 180s - Atenolol 50 mg started and tolerating well; improved to sBP 150s - Will give 25 mg Atenolol today - Can be discharged on home regimen Lower extremity edema - No evidence of edema at this time; continue watch in the setting of surgery and hemodynamic shifts - No need to give Lasix at this time; continue to hold at this time DVT prophylaxis - SCD - Ambulation as tolerated - Hold pharmacological anticoagulation today as patient is immediately post-op. Can be re-started at discretion of primary surgical team Continued [facility] stay due to: ambulation difficulties Discharge planning: home Reviewed: Pt Seen/Exam by Me History no concerns. Constitutional: denies: fever Respiratory: negative: short of breath Cardiovascular: reports other (chest pain at surgical site) Gastrointestinal/Abdominal: negative: abdominal pain General Appearance: no apparent distress Respiratory: lungs clear, no respiratory distress Cardiovascular: regular rate, rhythm Neurologic/Psychiatric: alert, oriented x 3 Skin Characteristics: warm/dry Assessment/Plan Resident Physician Supervision Note: I was present with Dr. Mejia in bedside. I verified the aguayo history and physical, reviewed labs and image studies, discussed the case with the resident and agree with the findings and care plan.
[2017-05-10 10:13] VITALS: O2SAT 96
[2017-05-10 11:10] VITALS: BP 168/78; PULSE 60; TEMP 36.5; O2SAT 93
[2017-05-10] MEDS ORDERED: CIPR-255 PO (13:51)
[2017-05-10] MEDS ORDERED: HYDR-5688 PO (13:51)
--- NOTE | 2017-05-10 13:53 | Discharge Instructions ---
Discharge Instructions Date of Service May 10, 2017. Admission Reason for Admission: Left Breast Cancer W/Hosp Loc & Nm Inj To Follow Discharge Discharge Diagnosis / Problem: Lt breast cancer Discharge Goals Goal(s): Decrease discomfort, Improve function, Improve disease control Activity Recommendations Activity Limitations: as noted below Lifting Limitations: no more than 10 pounds Exercise/Sports Limitations: until after follow-up appointment May Resume Sexual Activity: after follow-up appointment Shower/Bathe: tomorrow (shower only) Driving or Machine Use: 2 weeks SPECIAL CARE INSTRUCTIONS: * Cover incisions and change daily for comfort/drainage. * Empty drain 2-3 times per day and record. may use Senokot S and Milk of Magnesia twice daily to avoid constipation- as directed on the package * May use ibuprofen for pain as tolerated. * Expect some swelling and bruising. Call your doctor if: * Temperature above 101 degrees * Pain not relieved by pain medicine ordered * There is increased drainage or redness from any incision * You have any unanswered questions or concerns [phone]. FOLLOW UP VISIT: If not already scheduled, please call the office for a follow-up visit. for next week- wound/ drain check OFFICE PHONE NUMBER: Dr. Bray Office . Current Hospital Diet Patient's current hospital diet: Regular Diet Discharge Diet Recommended Diet: Regular Diet Procedures Procedures Performed: Left Breast Mastectomy with Left [place] Lymph Node Biopsy (Injection Only) and Lt axillary dissection Pending Studies Studies pending at discharge: no Medical Emergencies . Who to Call and When: Medical Emergencies: If at any time you feel your situation is an emergency, please call 911 immediately. . Non-Emergent Contact Non-Emergency issues call your: Primary Care Provider, Surgeon . "Provider Documentation" section prepared by Obinna Bray. . VTE Core Measure Inpt VTE Proph given/why not?: SCD's
[2017-05-10 15:20] VITALS: BP 182/74; PULSE 57; TEMP 37.1; O2SAT 92
[2017-05-10 23:14] VITALS: BP 173/71; PULSE 80; TEMP 37.2; O2SAT 93
[2017-05-11] MEDS: CLINDAMYCIN IV 600 MG in DEXTROSE 5% 50ML 50 ML IV SCH ×2 (02:29→10:43)
[2017-05-11 07:09] VITALS: BP 185/78; PULSE 74; TEMP 36.7; O2SAT 90
--- NOTE | 2017-05-11 08:01 | DISCHARGE SUMMARY ---
DATE OF DISCHARGE: 05/11/2017 PRINCIPAL DIAGNOSIS: Left breast cancer. PROCEDURES: The patient underwent left mastectomy with left axillary dissection, drain placement. HISTORY OF PRESENT ILLNESS: The patient is an 81-year-old female with a history of breast cancer diagnosed preoperatively. HOSPITAL COURSE: The patient was brought in the hospital on 05/09/2017. She went to the operating room electively and underwent left mastectomy with sentinel lymph node biopsy which did show a 1 mm focus of cancer in the lymph node. She underwent left axillary dissection and had 2 drains placed. She has done quite well over the last 2 days and is felt stable for discharge home today. She has had some mild hypertension which is being addressed by the medical team. We will see her in the office early next week.
[2017-05-11] MEDS ORDERED: DOCUSATE SODIUM/SENNA 50/8.6MG TAB PO SCH (08:30)
[2017-05-11] MEDS ORDERED: MAGNESIUM HYDROXIDE SUSP 30 ML UDC PO SCH (08:30)
[2017-05-11 09:13] VITALS: BP 161/77; PULSE 74
[2017-05-11 10:07] VITALS: BP 151/73
[2017-05-11 11:22] VITALS: BP 151/73; PULSE 74; TEMP 36.7; O2SAT 90
--- NOTE | 2017-05-11 11:24 | Hospitalist Progress Note ---
Hospitalist Progress Note Date of Service May 11, 2017. (Milad Cerda MD) Subjective Pt evaluation today including: conversation w/ patient PO Intake: good patient says BP usually runs in the 180's and she is told to titrate her atenolol according to her home blood pressure readings has tried several BP meds, all with intolerable side effects will be following up with Dr. Badillo with regards to BP control Constitutional: No fever, No chills Respiratory: No cough, No wheezing, No shortness of breath, No dyspnea on exertion Cardiovascular: No chest pain, No edema, No palpitations Abdomen: No pain, No nausea, No vomiting Neurologic: No paralysis, No weakness, No numbness/tingling, No balance problems (Milad Cerda MD) Medications Current Inpatient Medications Medications (Trade) Dose Ordered Sig/Patricia Route Start Time Stop Time Status Last Admin Dose Admin Atenolol (Tenormin Tab) 50 mg Q2D@0900 PO 05/11/17 09:00 06/10/17 08:59 05/11/17 07:31 50 MG Clindamycin Phosphate 600 mg/ Dextrose 54 ml @ 100 mls/hr Q8H IV 05/09/17 18:00 05/19/17 17:59 05/11/17 10:43 100 MLS/HR Acetaminophen/ Hydrocodone Bitart ([place] 5/325 Tab) 1 tab Q4 PRN PO 05/09/17 12:45 05/23/17 12:44 Acetaminophen/ Hydrocodone Bitart ([place] 5/325 Tab) 2 tab Q4 PRN PO 05/09/17 12:45 05/23/17 12:44 Morphine Sulfate (MoRPHine SULFATE INJ) 2 mg Q4H PRN IV 05/09/17 12:45 05/23/17 12:44 Morphine Sulfate (MoRPHine SULFATE INJ) 4 mg Q4H PRN IV 05/09/17 12:45 05/23/17 12:44 Ondansetron HCl (Zofran Inj) 4 mg Q6H PRN IV 05/09/17 12:45 06/08/17 12:44 Senna/Docusate Sodium (Senokot S Tab) 1 tab BID PO 05/11/17 08:30 06/10/17 08:29 05/11/17 09:11 1 TAB Magnesium Hydroxide (Milk Of Magnesia Susp) 30 ml BID PO 05/11/17 08:30 06/10/17 08:29 05/11/17 09:11 30 ML (Milad Cerda MD) Objective Vital Signs Date Time Temp Pulse Resp B/P (MAP) Pulse Ox O2 Delivery O2 Flow Rate FiO2 05/11/17 10:07 151/73 (99) 05/11/17 09:13 74 161/77 (105) 05/11/17 07:30 Room Air 05/11/17 07:09 36.7 74 18 185/78 (113) 90 Room Air 05/11/17 00:01 Room Air 05/10/17 23:14 37.2 80 20 173/71 (105) 93 Room Air 05/10/17 15:20 37.1 57 16 182/74 (110) 92 Room Air 05/10/17 15:15 Room Air (Milad Cerda MD) Physical Exam General Appearance: WD/WN, no apparent distress ENT: hearing grossly normal, pharynx normal Neck: no adenopathy, no JVD, no carotid bruits Respiratory/Chest: lungs clear, no respiratory distress, no accessory muscle use, + pertinent finding (thorax with dressing on) Cardiovascular: regular rate, rhythm, no JVD, no murmur Abdomen: normal bowel sounds, non tender, soft Extremities: non-tender, no pedal edema, no calf tenderness, normal capillary refill Neurologic/Psychiatric: alert, normal mood/affect, oriented x 3 (Milad Cerda MD) Assessment and Plan This is a 81 yo female with HTN, day 2 s/p left breast mastectomy w/ left sentinel node biopsy and left axillary dissection. Currently, she is doing very well at this time: Plan: Left breast cancer s/p left breast mastectomy w/ left sentinel node biopsy and left axillary dissection - Post-op day 2 - Dressing changes per surgery; encourage ambulation - Currently pain is well managed; titrate per primary surgical team - Continue holding ASA as she uses it elective Leukocytosis - WBC 20 today; no fevers or systemic ssx - Likely 2/2 steroid pre-operatively along with systemic stress of surgery; appears well Hypertension - Elevated BP post-operative, systolic 180s - Atenolol 50 mg started and tolerating well - Can be discharged on home regimen - will follow up with PCP with regards to titrating blood pressure meds for goal of 140/90 DVT prophylaxis - SCD - Ambulation as tolerated Dispo - patient can be discharged today (Milad Cerda MD) Reviewed: Pt Seen/Exam by Me (Cherelle Nash M.D.) History feeling good excited about going home. aware of bp fluctuation. tends to titrate medication on her own at home as recommended by pcp (Cherelle Nash M.D.) Constitutional: denies: fever Respiratory: negative: short of breath Cardiovascular: denies chest pain (Cherelle Nash M.D.) General Appearance: no apparent distress Respiratory: lungs clear, no respiratory distress Cardiovascular: regular rate, rhythm Neurologic/Psychiatric: alert, oriented x 3 Skin Characteristics: warm/dry (Cherelle Nash M.D.) Assessment/Plan Resident Physician Supervision Note: I was present with Dr. Cerda in bedside. I verified the aguayo history and physical, reviewed labs and image studies, discussed the case with the resident and agree with the findings and care plan. (Cherelle Nash M.D.)
[2017-06-06] MEDS ORDERED: FLUN0.02 NAE (09:54)
== END 2017-05-11 12:15 | disposition home health service (06) | DRG 581 ==
LOC: C.ACU 08:30 → C.MSW 12:35 → EDBEDREQ 13:17 → ENRESERV 13:18
PROVIDERS: ADMIT Surgery; ATTEND Surgery
PROC: 07B60ZX Excision of Left Axillary Lymphatic, Open Approach, Diagnostic (ICD-10-PCS; principal; 2017-05-09 10:00)
PROC: 0HTU0ZZ Resection of Left Breast, Open Approach (ICD-10-PCS; principal; 2017-05-09 10:00)
DX: C50.912 Malignant neoplasm of unspecified site of left female breast (principal); D45 Polycythemia vera; M19.90 Unspecified osteoarthritis, unspecified site; D72.829 Elevated white blood cell count, unspecified; I10 Essential (primary) hypertension; D50.9 Iron deficiency anemia, unspecified; R60.0 Localized edema; Z79.82 Long term (current) use of aspirin; Z79.899 Other long term (current) drug therapy

== ENCOUNTER 2017-07-02 04:56 | Day surgery (SDC) | payer BC ==
[2017-06-28 14:11] VITALS: BMI 22.0
[~2017-07-02] VITALS: Ht 170.2 cm; Wt 65.0 kg
[~2017-07-02 04:56] MED LIST changes: -CLINDAMYCIN IV 900 MG in DEXTROSE 5% 100ML 100 ML IV SCH; -LACTATED RINGER'S 1000ML 1,000 ML IV SCH
[2017-07-02 05:30] VITALS: BP 177/73; PULSE 68; TEMP 36.7; O2SAT 96; Ht 170.2 cm; Wt 65.0 kg
[2017-07-02] MEDS ORDERED: CLINDAMYCIN IV 900 MG in DEXTROSE 5% ADD-VANTAGE 100ML 100 ML IV SCH (06:00)
[2017-07-02] MEDS ORDERED: LACTATED RINGER'S 1000ML 1,000 ML IV SCH (06:00)
[2017-07-02] MEDS ORDERED: THROMBIN FOR SOLN 20000 UNIT KIT ONE (06:38)
[2017-07-02] MEDS ORDERED: CEFAZOLIN SOD 1 GM VIAL ONE (06:38)
[2017-07-02] MEDS ORDERED: LIDOCAINE HCL 1% 20 ML VIAL ONE (06:38)
[2017-07-02] MEDS ORDERED: HEPARIN SOD (PORCINE) 1000 UNIT/ML 10 ML VIAL ONE (06:39)
[2017-07-02] MEDS ORDERED: MIDAZOLAM HCL 1 MG/ML 2ML VIAL ONE (06:42)
[2017-07-02] MEDS ORDERED: FENTANYL CITRATE INJ 50 MCG/1 ML 2 ML VIAL ONE (06:42)
[2017-07-02] MEDS ORDERED: TRAM-453 PO ×2 (07:35→07:50)
--- NOTE | 2017-07-02 07:37 | Discharge Instructions ---
Discharge Instructions Date of Service Jul 02, 2017. Visit Reason for Visit: Breast Cancer Discharge Discharge Diagnosis / Problem: A-port placement Discharge Goals Goal(s): Improve disease control Activity Recommendations Activity Limitations: as noted below Shower/Bathe: keep incision dry (for 2 days) Anesthesia . Post Anesthesia Instructions: If you have had General Anesthesia or IV Sedation: * Do not drive today. * Resume driving when surgeon permits. * Do not make important decisions or sign legal documents today. * Call surgeon for: 1. Temperature elevations greater than 101 degrees F. 2. Uncontrollable pain. 3. Excessive bleeding. 4. Persistent nausea and vomiting. 5. Medication intolerance (nausea, vomiting or rash). * For nausea and vomiting use only clear liquids such as: tea, soda, bouillon until nausea subsides, then gradually increase diet as tolerated. * If you have any concerns or questions, call your surgeon's office. If physician is unavailable and it is an emergency, call 911 or go to the nearest emergency room. . Instructions / Follow-Up Instructions / Follow-Up Dr. Bray's office in 2 weeks for removal of sutures, call [phone] for any questions Diet Recommendations Recommended Home Diet: no limitations Pending Studies Studies pending at discharge: no Medical Emergencies . Who to Call and When: Medical Emergencies: If at any time you feel your situation is an emergency, please call 911 immediately. . Non-Emergent Contact Non-Emergency issues call your: Surgeon Call Non-Emergent contact if: you have a fever, temperature is above 101.5, your pain is not controlled, wound has increased redness, you have any medication questions . . "Provider Documentation" section prepared by Minh Corbin. .
[2017-07-02] MEDS ORDERED: ONDANSETRON INJ 2 MG/ML 2 ML VIAL IV PRN ×2 (08:00)
[2017-07-02] MEDS ORDERED: ATROPINE SULFATE 0.1 MG/ML 5ML SYR IV PRN (08:00)
[2017-07-02] MEDS ORDERED: FENTANYL CITRATE INJ 50 MCG/1 ML 2 ML VIAL IV PRN (08:00)
[2017-07-02] MEDS ORDERED: LABETALOL HCL IV 5 MG/ML 20ML IV PRN (08:00)
[2017-07-02] MEDS ORDERED: TRAMADOL HCL 50 MG TAB PO PRN (08:00)
--- NOTE | 2017-07-02 08:14 | OPERATIVE REPORT ---
DATE OF OPERATION: 07/02/2017 NAME OF OPERATION: Access port placement. PREOPERATIVE DIAGNOSIS: Breast cancer. POSTOPERATIVE DIAGNOSIS: Same. STAFF SURGEON: Obinna NUGENT MD ANESTHESIA: 1% plain lidocaine with sedation. PROCEDURE: The patient was brought in the operating room and placed on the operating table in supine position. Her left chest was prepped and draped in usual fashion. Using 1% plain lidocaine, skin and subcutaneous tissue were anesthetized. Incision made, carrying dissection down, identifying the cephalic vein. It was too small to use for the catheter, it was ligated. The patient was placed in Trendelenburg position. Using a puncture technique, the left subclavian vein was localized, a wire passed under fluoroscopy. Initially it went into the internal jugular vein, but then it was repositioned down into the superior vena cava. At this point, dilator and introducer passed over the wire. The dilator and wire removed. The catheter passed through the introducer. The introducer removed. Catheter was then placed appropriately under fluoroscopy, it was then attached to a port. The port was aspirated and flushed with heparinized solution. The port was placed into a pocket in the chest wall and secured to the deep tissue using 3-0 Prolene suture and then the subcutaneous tissue reapproximated using 2-0 chromic catgut suture. The site was irrigated with antibiotic solution. Skin reapproximated using 4-0 nylon suture, then a dressing applied. The patient was transferred to recovery room in stable condition. I attest to the content of the Intraoperative Record and any orders documented therein. Any exception s are noted below.
--- NOTE | 2017-07-02 08:22 | DIAGNOSTIC IMAGING REPORT ---
CHEST ONE VIEW PORTABLE HISTORY: 82 years-old Female port placement of a left subclavian Shubuv-y-Xhep catheter. COMPARISON: Chest radiographs 08/11/2015 TECHNIQUE: Portable upright AP view of the chest FINDINGS: Cardiac silhouette is moderately enlarged, unchanged. There is atherosclerosis of the aorta. There is prominence of the pulmonary vasculature which is unchanged with mild background interstitial opacities suggesting chronic changes. There is no pneumothorax, pleural effusion or focal airspace consolidation. Left subclavian Ygjmye-g-Ttwx catheter is present with distal tip terminating near the superior cavoatrial junction. The bones are grossly intact. IMPRESSION: 1. Placement of a left subclavian Mwjzxl-r-Kotu catheter with distal tip terminating near the superior cavoatrial junction. No postprocedural pneumothorax. 2. Cardiomegaly without overt pulmonary edema. The above report was generated using voice recognition software. It may contain grammatical, syntax or spelling errors. Electronically signed by: Moo Dawson M.D. 07/02/2017 8:20 AM Dictated Date/Time: 07/02/2017 8:18 AM
[2017-07-02 08:30] VITALS: BP 167/70; PULSE 62; TEMP 36.9; O2SAT 92
--- NOTE | 2017-07-02 08:51 | Anesthesiology Progress Note ---
Anesthesia Post Op Note Date & Time Jul 02, 2017 at 08:51 Vital Signs Pain Intensity: 0 Vital Signs Past 12 Hours Date Time Temp Pulse Resp B/P (MAP) Pulse Ox O2 Delivery O2 Flow Rate FiO2 07/02/17 08:30 36.9 62 20 167/70 92 Room Air 07/02/17 08:21 147/69 07/02/17 08:17 62 19 93 07/02/17 08:17 62 19 07/02/17 08:16 132/69 07/02/17 08:14 62 21 92 07/02/17 08:14 62 21 07/02/17 08:11 161/68 07/02/17 08:09 62 15 07/02/17 08:09 62 15 95 07/02/17 08:07 36.9 62 19 145/66 (79) 93 Room Air 07/02/17 08:06 145/66 07/02/17 08:04 64 22 93 07/02/17 08:04 64 22 07/02/17 08:03 62 18 93 07/02/17 08:03 62 18 07/02/17 08:01 139/66 07/02/17 07:58 63 18 07/02/17 07:58 63 18 92 07/02/17 07:56 138/61 07/02/17 07:53 65 18 92 07/02/17 07:53 65 18 07/02/17 07:51 149/82 07/02/17 07:49 147/72 07/02/17 07:48 68 07/02/17 07:48 37.0 69 16 147/72 95 Room Air 07/02/17 07:48 68 94 07/02/17 05:30 36.7 68 20 177/73 (107) 96 Room Air Notes Mental Status: alert / awake / arousable, participated in evaluation Pt Amnestic to Procedure: Yes Nausea / Vomiting: adequately controlled Pain: adequately controlled Airway Patency, RR, SpO2: stable & adequate BP & HR: stable & adequate Hydration State: stable & adequate Anesthetic Complications: no major complications apparent
[2017-07-02 09:00] VITALS: BP 184/79; PULSE 64; TEMP 36.9; O2SAT 98
== END 2017-07-02 09:05 | disposition home or self-care (01) ==
LOC: C.ACU 04:56
PROVIDERS: ATTEND Surgery
DX: C50.912 Malignant neoplasm of unspecified site of left female breast (principal); K21.9 Gastro-esophageal reflux disease without esophagitis; E78.00 Pure hypercholesterolemia, unspecified; I10 Essential (primary) hypertension; Z90.49 Acquired absence of other specified parts of digestive tract; Z90.12 Acquired absence of left breast and nipple; Z82.49 Family history of ischemic heart disease and other diseases of the circulatory system; Z80.42 Family history of malignant neoplasm of prostate; Z83.3 Family history of diabetes mellitus; Z79.82 Long term (current) use of aspirin; I51.7 Cardiomegaly

== ENCOUNTER → 2017-11-02 | Outpatient (CLI) | payer BC ==
--- NOTE | 2017-11-02 17:13 | DIAGNOSTIC IMAGING REPORT ---
RIGHT UPPER EXTREMITY VENOUS DOPPLER HISTORY: RIGHT ARM SWELLING, PAIN COMPARISON STUDY: None. FINDINGS: The right internal jugular vein is patent. There is normal flow within the right subclavian vein. There is normal flow and compressibility within the right axillary, basilic, brachial, radial, ulnar, and visualized cephalic veins. IMPRESSION: No DVT within the right upper extremity. Electronically signed by: Teddy Richards M.D. 11/02/2017 5:11 PM Dictated Date/Time: 11/02/2017 5:11 PM
== END | disposition home or self-care (01) ==
LOC: C.ULTR 16:23
PROVIDERS: ATTEND Internal Medicine Hematology & Oncology
DX: R22.31 Localized swelling, mass and lump, right upper limb (principal)

== ENCOUNTER 2020-07-19 14:42 | Inpatient (IN) ==
[2020-07-19] MEDS ORDERED: ACETAMINOPHEN 325 MG TAB PO PRN (15:19)
[2020-07-19] MEDS ORDERED: PATIENT'S HEIGHT AND/OR WEIGHT NEEDED SCH (15:30)
[2020-07-19] MEDS ORDERED: diphenhydrAMINE Capsule 25 MG CAP PO ONE (15:35)
[2020-07-19] MEDS ORDERED: ACETAMINOPHEN 500 MG TAB PO ONE (15:35)
--- NOTE | 2020-07-19 17:02 | History & Physical Report ---
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, no evidence of bleeding or significant bruising has petechiae over lower extremities will give IVIG 1gm/kg IV daily x 2 days repeat CBC in the morning hematology consulted, appreciate their recommendations (2) History of left mastectomy: h/o breast cancer had chemotherapy several years ago in remission (3) Iron deficiency anemia: Hb is stable, follow on daily labs (4) Hypercholesterolemia: diet controlled (5) HTN (hypertension): continue Atenolol BP elevated on intake but she had just walked down the garber prior to getting vitals Admission and Anticipated Discharge Date Admission Date: July 19, 2020 History of Present Illness Chief Complaint: I was sent here from hematology office Primary Care Provider: Anatoly Badillo MD 85 yo female with 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 She was initially given Prednisone but she had a very unfavorable response with side effects of mood changes, anger. Mid summer she was treated with IVIG for a platelet count of 17k and she responded favorably, platelets up above 80k. Her platelets have remained stable the rest of the summer up until this past week. Found to have a platelet count of 5k on routine lab work. Recommended that she come to the hospital for IVIG treatment. I discussed with Inga CERDA over the phone, will use 1gm/kg of IVIG daily, look for platelet count to improve. Patient has a small bruise over her right hand and a petechial rash on lower extremities bilaterally. No major bruising, no bleeding. She feels completely fine with no fever/chills, no cough, no dyspnea, no chest pain, no abdominal symptoms. Her daughter is at the bedside, she agrees that the patient has been doing quite well, if it were not for he lab abnormality there would be no reason to suspect that she needs admitted. Allergies Allergy/AdvReac Type Severity Reaction Status Date / Time Penicillins Allergy Severe THROAT Verified 06/02/20 09:47 SWELLING, BREATHING PROBLEMS shellfish derived Allergy Severe BREATHING Verified 06/02/20 09:47 PROBLEMS, VOMITING DO Inhibitors Allergy Unknown UNKNOWN Verified 06/02/20 09:47 acetaminophen Allergy Unknown "bleeding Verified 06/02/20 09:47 from bowels" aloe Allergy Unknown Rash Verified 06/02/20 09:47 ARB-Angiotensin Receptor Allergy Unknown UNKNOWN Verified 06/02/20 09:47 Antagonist hydrochlorothiazide Allergy Unknown UNKNOWN Verified 06/02/20 09:47 Iodinated Contrast Media Allergy Unknown BREATHING Verified 06/02/20 09:47 PROBLEMS VOMITING diltiazem Allergy Verified 06/02/20 09:47 prednisolone acetate, AdvReac irritablity, Verified 06/02/20 09:47 micronized sleepessness Calcium Channel Blockers Allergy Unknown edema Uncoded 06/02/20 09:47 Home Medications Home Medications Medication Instructions Recorded Confirmed Type furosemide 20 mg tablet 20 mg PO DAILY PRN 03/15/19 06/02/20 History atenolol 50 mg tablet 50 mg PO DAILY PRN #90 tab 08/22/19 06/02/20 Rx Past Med/Surg History Medical History Chronic sinusitis Disorder of esophagus Esophageal reflux Hemorrhoids Herpes zoster Hypercholesterolemia Iron deficiency anemia Solitary pulmonary nodule Surgical History History of mastectomy Family History (Updated 07/20/20 @ 09:12 by Kamron Beard DO) Brother Coronary heart disease Social History Smoking Status: Never smoker Hx Alcohol Use: Yes Alcohol type: beer Hx Substance Use: No Preferred Language: Kyrgyz Communication Ability: Effective Clinical Research Assistant Required: No Beliefs That Will Affect Care: None Current Living Situation: Family Current Living Situation Comment: lives with daughter - [place] [facility] current occupational status: retired Feels Safe at Home: Yes Safety Concerns: Feels Safe At This Time Seatbelt Use: always Assistive Devices: Denture - Upper, Denture - Lower and Glasses Review of Systems Review of Systems: All systems reviewed & are unremarkable except as noted in Subjective Constitutional: no fever, no chills, no sweats, no fatigue, no weakness, no weight loss and no insomnia Respiratory: no cough, no dyspnea and no wheezing Cardiovascular: no chest pain, no palpitations, no syncope and no edema Gastrointestinal: no abdominal pain, no nausea, no vomiting, no constipation and no diarrhea/loose stools Physical Exam Constitutional: WD/WN, vitals as above Eyes: PERRL, conjunctivae normal, anicteric sclerae ENMT: external ear and nose normal, oropharynx normal Neck: trachea midline, no thyromegaly Respiratory: normal respiratory effort, lungs clear to auscultation Cardiovascular: Rate/Rhythm: regular rhythm and + tachycardic Heart Sounds: normal S1 and normal S2; no murmur Extremities: normal capillary refill; no edema Gastrointestinal (Abdomen): normal bowel sounds, soft, nontender, no hepat osplenomegaly Musculoskeletal: no cyanosis or clubbing, extremities motor strength 5/5 Skin: + rash (petechial rash lower extremities bilaterally) Neurologic: patellar DTR's 2+ bilat, sensation intact and PERRL, EOMI, accommodation nl, no face palsy, no dysarthria Psychiatric: A+Ox3, euthymic affect Lymphatic: no cervical or axillary lymphadenopathy Results & Data Results & Data ([facility]) Vital Signs (Past 12 Hours) Vital Signs Temp Pulse Resp BP BP Pulse Ox 07/19/20 16:56 37.1 C 96 H 16 153/82 H 97 07/19/20 15:11 36.8 C 107 H 18 176/91 H 95 Code Status & VTE Plan VTE Prophylaxis Plan VTE Prophylaxis will be ordered: No PG Care Time/CCT Total # of Minutes Spent Total Time Spent with Patient: Total time spent is greater than 50% in cook fast food rdination of care (as documented) at patient's floor/unit and/or counseling patient: Coding Level of Care Code 60598 Initial Inpt Care Lvl 3 Diagnoses Acute ITP D69.3 History of left mastectomy Z90.12 Iron deficiency anemia D50.9 Hypercholesterolemia E78.00 HTN (hypertension) I10 Hypertension type: essential hypertension (1) HTN (hypertension) Hypertension type: essential hypertension Qualified Code(s): I10 - Essential (primary) hypertension
[2020-07-19] MEDS ORDERED: HEPARIN 100 UNIT/ML 5ML FLUSH FLUSH PRN (17:03)
[2020-07-19] MEDS: IMMUNE GLOBULIN(HUMAN) 10% 200 ML IV SCH ×3 (17:05→20:18)
[2020-07-20 07:45] LABS: Hematocrit (blood only) 35.3 % (37-47); Hemoglobin 11.5 g/dL (12.0-16.0); Mean Corpuscular Hemoglobin 32.5 pg (25-34); Mean Corpuscular Volume 99.7 fL (80-100); RDW Coefficient of Variation 14.9 % (11.5-14.5); RDW Standard Deviation 54.3 fL (36.4-46.3); Red Blood Count 3.54 M/uL (4.2-5.4); White Blood Count 4.37 K/uL (4.8-10.8)
[2020-07-20 07:46] LABS: BUN Creatinine Ratio 10.2 (10-20); Calcium 9.4 mg/dl (8.5-10.1); Creatinine Clr Calc Pharmacy 46.2 ml/min; Est GFR (African American) 71.9; Potassium 3.6 mmol/L (3.5-5.1)
[2020-07-20 08:05] LABS: Mean Corpuscular Hgb Conc 32.6 g/dL (32-36); Platelet Count 6 K/uL (130-400)
[2020-07-20 08:25] LABS: Basophils # (auto) 0.01 K/uL (0-0.2); Basophils % (auto) 0.2 %; Eosinophils # (auto) 0.09 K/uL (0-0.5); Eosinophils % (auto) 2.1 %; Immature Granulocytes # (auto) 0.01 K/uL (0.00-0.02); Immature Granulocytes % (auto) 0.2 %; Lymphocytes # (auto) 0.75 K/uL (1.2-3.4); Lymphocytes % (auto) 17.2 %; Neutrophils # (auto) 2.81 K/uL (1.4-6.5); Neutrophils % (auto) 64.3 %; Ovalocytes 1+; Platelet Estimate SIGNIFIC DECREASED (Normal)
[2020-07-20] MEDS ORDERED: ATENOLOL 50 MG TABLET PO SCH (09:00)
--- NOTE | 2020-07-20 09:26 | Hospitalist Progress Note ---
Date of Service July 20, 2020 Assessment & Plan (1) Acute ITP: plts up to 6k, no evidence of bleeding or significant bruising has petechiae over lower extremities received IVIG 60,000 mg yesterday, re-dose today, tolerated well check CBC again tomorrow (2) Atrial fibrillation: went into afib overnight, this is new diagnosis HR well controlled on Atenolol 50mg but BP still high, 160's systolic will change to metoprolol 25mg TID, monitor HR, look for her to convert check echo no need for cardiology consult at this time anticoagulation is contraindicated due to plts of 6k (3) History of left mastectomy: h/o breast cancer had chemotherapy several years ago in remission (4) Iron deficiency anemia: Hb is stable, follow on daily labs (5) Hypercholesterolemia: diet controlled (6) HTN (hypertension): BP elevated this morning prior to Atenolol change to metoprolol 25mg TID for HR control and BP control Admission and Anticipated Discharge Date Admission Date: July 19, 2020 Subjective patient was found to be in afib overnight, this is new diagnosis HR ranging from 100-120's, she was moved to medical tele floor on the monitor she is stable, she feels fine eating well platelets are still low at 6k, plan for further IVIG today no signs of bleeding for afib we will stop Atenolol, change to Metoprolol 25mg TID with next dose at 1400, no anticoagulation with thrombocytopenia Review of Systems Review of Systems: All systems reviewed & are unremarkable except as noted in Subjective Physical Exam Constitutional: WD/WN, vitals as above Eyes: PERRL, conjunctivae normal, anicteric sclerae ENMT: external ear and nose normal, oropharynx normal Neck: trachea midline, no thyromegaly Respiratory: normal respiratory effort, lungs clear to auscultation Cardiovascular: Rate/Rhythm: + tachycardic and + irregularly irregular Heart Sounds: normal S1 and normal S2; no murmur Extremities: normal capillary refill; no edema Gastrointestinal (Abdomen): normal bowel sounds, soft, nontender, no hepatosplenomegaly Musculoskeletal: no cyanosis or clubbing, extremities motor strength 5/5 Skin: + rash (petechial rash lower extremities bilaterally) Neurologic: patellar DTR's 2+ bilat, sensation intact and PERRL, EOMI, accommodation nl, no face palsy, no dysarthria Psychiatric: A+Ox3, euthymic affect Lymphatic: no cervical or axillary lymphadenopathy Results & Data Results & Data ([facility]) Vital Signs (Past 12 Hours) Vital Signs Temp Pulse Resp BP Pulse Ox 07/20/20 07:58 36.7 C 121 H 17 160/97 H 93 07/20/20 04:26 36.9 C 115 H 20 154/100 H 92 07/20/20 00:18 37.2 C 102 H 18 132/71 91 07/19/20 23:29 37.5 C 107 H 16 111/66 93 07/19/20 21:42 37.5 C 107 H 16 146/85 H 95 Laboratory Results Laboratory Results - last 24 hr 07/20/20 07/20/20 07/20/20 04:15 04:31 07:21 WBC 4.37 L RBC 3.54 L Hgb 11.5 L Hct 35.3 L MCV 99.7 MCH 32.5 MCHC 32.6 RDW Std Deviation 54.3 H RDW Coeff of Darion 14.9 H Plt Count 6 L* Immature Gran % (Auto) 0.2 Neut % (Auto) 64.3 Lymph % (Auto) 17.2 [place] % (Auto) 16.0 Eos % (Auto) 2.1 Baso % (Auto) 0.2 Neut # (Auto) 2.81 Lymph # (Auto) 0.75 L [place] # (Auto) 0.70 H Eos # (Auto) 0.09 Baso # (Auto) 0.01 Immature Gran # (Auto) 0.01 Platelet Estimate SIGNIFIC DECREASED Ovalocytes 1+ Sodium Potassium Chloride Carbon Dioxide Anion Gap BUN Creatinine Est Cr Clr Drug Dosing Est GFR ( Amer) Est GFR (Non-Af Amer) BUN/Creatinine Ratio Glucose Calcium Troponin I < 0.015 Nasal Screen MRSA (PCR) Negative 07/20/20 07:21 WBC RBC Hgb Hct MCV MCH MCHC RDW Std Deviation RDW Coeff of Darion Plt Count Immature Gran % (Auto) Neut % (Auto) Lymph % (Auto) [place] % (Auto) Eos % (Auto) Baso % (Auto) Neut # (Auto) Lymph # (Auto) [place] # (Auto) Eos # (Auto) Baso # (Auto) Immature Gran # (Auto) Platelet Estimate Ovalocytes Sodium 142 Potassium 3.6 Chloride 110 H Carbon Dioxide 28 Anion Gap 4.0 BUN 9 Creatinine 0.85 Est Cr Clr Drug Dosing 46.2 Est GFR ( Amer) 71.9 Est GFR (Non-Af Amer) 62.0 BUN/Creatinine Ratio 10.2 Glucose 103 H Calcium 9.4 Troponin I Nasal Screen MRSA (PCR) Medications Administered Current Inpatient Medications Heparin Sodium (Porcine) (Heparin 100 Unit/Ml 5ml Flush) 5 ml FLUSH PRN PRN PRN Reason: Flush Stop: 08/18/20 17:02 Immune Globulin (Flebogamma 10%) 200 mls @ 0 mls/hr IV DAILY@1600,1700,1800 MELANI; Protocol Stop: 07/20/20 18:01 Last Infusion: 07/19/20 23:30 Dose: Infused Documented by: Metoprolol Tartrate (Metoprolol Tartrate 25 Mg Tab) 25 mg PO TID MELANI Stop: 08/19/20 13:59 PG Care Time/CCT Total # of Minutes Spent Total Time Spent with Patient: Total time spent is greater than 50% in coordination of care (as documented) at patient's floor/unit and/or counseling patient: Coding Level of Care Code 80362 Subseq Hosp Care Lvl 3 Diagnoses Acute ITP D69.3 Atrial fibrillation I48.91 History of left mastectomy Z90.12 Iron deficiency anemia D50.9 Hypercholesterolemia E78.00 HTN (hypertension) I10 Hypertension type: essential hypertension (1) HTN (hypertension) Hypertension type: essential hypertension Qualified Code(s): I10 - Essential (primary) hypertension
[2020-07-20] MEDS: POTASSIUM CHLORIDE CRTAB 20 MEQ TABCR PO SCH (10:16)
--- NOTE | 2020-07-20 11:53 | Consultation Report ---
DATE OF CONSULTATION: 07/20/2020 HISTORY OF PRESENT ILLNESS: The patient admitted because of thrombocytopenia. The patient diagnosed this past summer with ITP. She was given prednisone; however, prednisone did not result in a rise in her platelet count. It also caused agitation and anger, therefore was discontinued. The patient was given intravenous immunoglobulin 1 g/kg and her platelet count jr to about 80,000. Her platelet count stayed in the vicinity of 80,000 until the last day or so. The patient has a petechial form rash, but no other manifestations of bleeding. The patient also has several other oncological problems. She has history of myeloproliferative disease. She was in the past treated with phlebotomies. Her myeloproliferative disease was diagnosed in 2010. 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 The patient has been on adjuvant Arimidex until recently. She tolerated it well. However, for unclear reasons, she has become noncompliant with the Arimidex. Notes unclear as to how the patient's breast cancer was treated. Abbreviated physical exam. No murmur. No epistaxis, hematuria or melena. Mild petechial form rash of legs. No lymphadenopathy or splenomegaly. IMPRESSION: Exacerbation of chronic ITP. PLAN: The patient will require intravenous immunoglobulin 1 g/kg. Although her platelet count is 5000 she is not bleeding and her platelet count should respond quickly to IVIG so I do not think she needs platelet transfusions. I will follow along with you for this problem. Additional information on patient's breast cancer, she was treated with a mastectomy. Oncotype DX was 14 indicating only a small chance of recurrent disease. However, since she was felt to possibly be under staged she was given 4 cycles of adjuvant TC with a 25% dose reduction.
[2020-07-20] MEDS: METOPROLOL TARTRATE 25 MG TAB PO SCH ×2 (12:25→20:13)
--- NOTE | 2020-07-20 13:15 | XCELERA ---
[id number]
--- NOTE | 2020-07-20 14:04 | Electrocardiogram Report ---
Test Reason : Blood Pressure : / mmHG Vent. Rate : 108 BPM Atrial Rate : 119 BPM P-R Int : 000 ms QRS Dur : 094 ms QT Int : 360 ms P-R-T Axes : 000 -04 028 degrees QTc Int : 482 ms Atrial fibrillation with rapid ventricular response Septal infarct , age undetermined Abnormal ECG When compared with ECG of 26-APR-2017 14:15, Significant changes have occurred Confirmed by Miguel Bingham ([id number]) on 07/20/2020 2:03:40 PM Referred By: Inga Armstrong Confirmed By:Miguel Bingham
[2020-07-20] MEDS: IMMUNE GLOBULIN(HUMAN) 10% 200 ML IV SCH ×3 (15:09→17:08)
[2020-07-21 05:37] LABS: BUN Creatinine Ratio 10.1 (10-20); Calcium 8.7 mg/dl (8.5-10.1); Creatinine Clr Calc Pharmacy 47.9 ml/min; Est GFR (African American) 75.1; Est GFR (Non-African American) 64.8; Potassium 4.1 mmol/L (3.5-5.1)
[2020-07-21 05:47] LABS: Hematocrit (blood only) 33.7 % (37-47); Hemoglobin 10.9 g/dL (12.0-16.0); Mean Corpuscular Hemoglobin 32.5 pg (25-34); Mean Corpuscular Hgb Conc 32.3 g/dL (32-36); Mean Corpuscular Volume 100.6 fL (80-100); Platelet Count 13 K/uL (130-400); RDW Coefficient of Variation 15.3 % (11.5-14.5); RDW Standard Deviation 55.8 fL (36.4-46.3); Red Blood Count 3.35 M/uL (4.2-5.4); White Blood Count 4.03 K/uL (4.8-10.8)
[2020-07-21 05:48] LABS: Basophils # (auto) 0.01 K/uL (0-0.2); Basophils % (auto) 0.2 %; Eosinophils # (auto) 0.09 K/uL (0-0.5); Eosinophils % (auto) 2.2 %; Giant Platelets 1+; Immature Granulocytes # (auto) 0.01 K/uL (0.00-0.02); Immature Granulocytes % (auto) 0.2 %; Lymphocytes # (auto) 0.75 K/uL (1.2-3.4); Lymphocytes % (auto) 18.6 %; Monocytes # (auto) 0.65 K/uL (0.11-0.59); Monocytes % (auto) 16.1 %; Neutrophils # (auto) 2.52 K/uL (1.4-6.5); Neutrophils % (auto) 62.7 %; Ovalocytes 1+; Platelet Estimate SIGNIFIC DECREASED (Normal); Tear Drop Cells 1+
--- NOTE | 2020-07-21 08:48 | Hospitalist Progress Note ---
Date of Service July 21, 2020 Assessment & Plan (1) Acute ITP: plts up to 13k, no evidence of bleeding or significant bruising has petechiae over lower extremities received IVIG 60,000 mg on 07/19 and 07/20 will try Nplate today, 5mcg/kg SQ x 1 dose repeat CBC in the morning discussed plan with Dr. Martinez, hematology (2) Atrial fibrillation: went into afib 07/19 in the evening, this is new diagnosis Atenolol changed to metoprolol for better rate control increase metoprolol to 50mg BID today, HR in the 90's at rest check echo -- normal EF, no significant valve disease no need for cardiology consult at this time anticoagulation is contraindicated due to plts of 13k (3) History of left mastectomy: h/o breast cancer had chemotherapy several years ago in remission (4) Iron deficiency anemia: Hb is stable today at 10.9 (5) Hypercholesterolemia: diet controlled (6) HTN (hypertension): BP better controlled on metoprolol 130's systolic today Admission and Anticipated Discharge Date Admission Date: July 19, 2020 Subjective patient doing great, just finished breakfast, appetite is good, no nausea her breathing is stable, no chest pain continues to be in afib on monitor, HR in the 90's, discussed changing to Lopressor 50mg BID discussed echo results, everything is stable with her heart labs show plts are 13k this morning talked with Dr. Martinez, he would like to try Nplate 5mcg/kg SQ x 1 this morning spoke with ICU pharmacist, they may need to get this from cancer center, he will get me an answer later explained to patient that she will need to stay here to follow platelet count, she understands Review of Systems Review of Systems: All systems reviewed & are unremarkable except as noted in Subjective Physical Exam Constitutional: WD/WN, vitals as above Eyes: PERRL, conjunctivae normal, anicteric sclerae ENMT: external ear and nose normal, oropharynx normal Neck: trachea midline, no thyromegaly Respiratory: normal respiratory effort, lungs clear to auscultation Cardiovascular: Rate/Rhythm: regular rate and + irregularly irregular Heart Sounds: normal S1 and normal S2; no murmur Extremities: normal capillary refill; no edema Gastrointestinal (Abdomen): normal bowel sounds, soft, nontender, no hepatosplenomegaly Musculoskeletal: no cyanosis or clubbing, extremities motor strength 5/5 Skin: + rash (petechial rash lower extremities bilaterally) Neurologic: patellar DTR's 2+ bilat, sensation intact and PERRL, EOMI, accommo dation nl, no face palsy, no dysarthria Psychiatric: A+Ox3, euthymic affect Lymphatic: no cervical or axillary lymphadenopathy Results & Data Results & Data ([facility]) Vital Signs (Past 12 Hours) Vital Signs Temp Pulse Resp BP Pulse Ox 07/21/20 04:00 36.6 C 92 H 16 132/70 94 07/21/20 00:20 36.4 C L 94 H 18 136/91 94 Laboratory Results Laboratory Results - last 24 hr 07/20/20 07/21/20 07/21/20 10:34 04:41 04:41 WBC 4.03 L RBC 3.35 L Hgb 10.9 L Hct 33.7 L MCV 100.6 H MCH 32.5 MCHC 32.3 RDW Std Deviation 55.8 H RDW Coeff of Darion 15.3 H Plt Count 13 L* D Immature Gran % (Auto) 0.2 Neut % (Auto) 62.7 Lymph % (Auto) 18.6 Crawford % (Auto) 16.1 Eos % (Auto) 2.2 Baso % (Auto) 0.2 Neut # (Auto) 2.52 Lymph # (Auto) 0.75 L Crawford # (Auto) 0.65 H Eos # (Auto) 0.09 Baso # (Auto) 0.01 Immature Gran # (Auto) 0.01 Platelet Estimate SIGNIFIC DECREASED Giant Platelets 1+ Tear Drop Cells 1+ Ovalocytes 1+ Sodium 139 Potassium 4.1 Chloride 110 H Carbon Dioxide 27 Anion Gap 2.0 L BUN 8 Creatinine 0.82 Est Cr Clr Drug Dosing 47.9 Est GFR ( Amer) 75.1 Est GFR (Non-Af Amer) 64.8 BUN/Creatinine Ratio 10.1 Glucose 99 Calcium 8.7 Troponin I < 0.015 Medications Administered Current Inpatient Medications Heparin Sodium (Porcine) (Heparin 100 Unit/Ml 5ml Flush) 5 ml FLUSH PRN PRN PRN Reason: Flush Stop: 08/18/20 17:02 Metoprolol Tartrate (Metoprolol Tartrate 50 Mg Tab) 50 mg PO BID MELANI Stop: 08/20/20 08:59 Potassium Chloride (Potassium Chloride 20 Meq Tabcr) 20 meq PO QAM MELANI Stop: 08/19/20 09:29 Last Admin: 07/20/20 10:16 Dose: 20 meq Documented by: PG Care Time/CCT Total # of Minutes Spent Total Time Spent: 32 Total Time Spent with Patient: Total time spent is greater than 50% in coordination of care (as documented) at patient's floor/unit and/or counseling patient: Coding Level of Care Code 85998 Subseq Hosp Care Lvl 3 Diagnoses Acute ITP D69.3 Atrial fibrillation I48.91 History of left mastectomy Z90.12 Iron deficiency anemia D50.9 Hypercholesterolemia E78.00 HTN (hypertension) I10 Hypertension type: essential hypertension (1) HTN (hypertension) Hypertension type: essential hypertension Qualified Code(s): I10 - Essential (primary) hypertension
[2020-07-21] MEDS: POTASSIUM CHLORIDE CRTAB 20 MEQ TABCR PO SCH (09:12)
[2020-07-21] MEDS: METOPROLOL TARTRATE 50 MG TAB PO SCH ×2 (09:12→21:24)
[2020-07-22 08:26] LABS: Hematocrit (blood only) 37.5 % (37-47); Hemoglobin 12.2 g/dL (12.0-16.0); Mean Corpuscular Hemoglobin 32.6 pg (25-34); Mean Corpuscular Hgb Conc 32.5 g/dL (32-36); Mean Corpuscular Volume 100.3 fL (80-100); Platelet Count 18 K/uL (130-400); RDW Coefficient of Variation 15.5 % (11.5-14.5); RDW Standard Deviation 56.3 fL (36.4-46.3); Red Blood Count 3.74 M/uL (4.2-5.4); White Blood Count 5.01 K/uL (4.8-10.8)
[2020-07-22 08:27] LABS: Platelet Estimate SIGNIFIC DECREASED (Normal)
--- NOTE | 2020-07-22 08:59 | Progress Notes ---
DATE: 07/22/2020 DIAGNOSES: 1. ITP. 2. Atrial fibrillation. 3. History of left mastectomy, status post breast cancer. 4. Iron deficiency anemia. SUBJECTIVE: Finally got an opportunity to visit with Juana, who is a very pleasant 85-year-old a prior patient of Dr. Erazo, now generally follows our extenders. This lady has been treated intermittently with steroids and IVIG and unfortunately her ITP is refractory. Thus recommended the incorporation of Nplate 1 mcg/kg subcutaneous one time dose. We will plan to resume outpatient Nplate upon discharge. The patient is in good spirits. She offers no complaints otherwise today. PHYSICAL EXAMINATION: GENERAL: Very pleasant 85-year-old female, awake, alert and appropriate. VITAL SIGNS: Temperature 36.4, pulse 92, respiratory rate 16, blood pressure 160/92. SKIN: Warm, dry without rash or lesion. HEENT: Oral mucosa without erythema or ulceration. NECK: Supple. HEART: Regular rate and rhythm. LUNGS: Clear to auscultation bilaterally. ABDOMEN: Soft, nontender, nondistended. EXTREMITIES: No clubbing, cyanosis or edema. NEUROLOGIC: Grossly intact. LABORATORY DATA: Peripheral blood counts from 07/22/2020 are pending. Platelet count yesterday was 13,000. IMPRESSION: 1. ITP. 2. Atrial fibrillation. 3. History of breast cancer. PLAN: As previously stated in the subjective section, Juana was recently started on Nplate 1 mcg/kg subcutaneous x1. We will plan to resume dosing as outpatient. As long as her platelets are heading in the right direction I would send her home unless there is another medical problem keeping her here. Juana understands that she will continue therapy at [facility] in the coming days. I have nothing further to add and overall it looks like she is doing quite well. Anxiously await today's platelet count.
[2020-07-22] MEDS: METOPROLOL TARTRATE 50 MG TAB PO SCH (09:09)
--- NOTE | 2020-07-22 09:47 | Discharge Summary ---
Date of Service July 22, 2020 Admission HPI Per Admitting Provider 85 yo female with well established history of MDS as well as ITP that was discovered earlier this year. She was initially given Prednisone but she had a very unfavorable response with side effects of mood changes, anger. Mid summer she was treated with IVIG for a platelet count of 17k and she responded favorably, platelets up above 80k. Her platelets have remained stable the rest of the summer up until this past week. Found to have a platelet count of 5k on routine lab work. Recommended that she come to the hospital for IVIG treatment. I discussed with Inga CERDA over the phone, will use 1gm/kg of IVIG daily, look for platelet count to improve. Patient has a small bruise over her right hand and a petechial rash on lower extremities bilaterally. No major bruising, no bleeding. She feels completely fine with no fever/chills, no cough, no dyspnea, no chest pain, no abdominal symptoms. Her daughter is at the bedside, she agrees that the patient has been doing quite well, if it were not f or he lab abnormality there would be no reason to suspect that she needs admitted. Principal Diagnosis thrombocytopenia due to ITP Discharge Exam Constitutional WD/WN, vitals as above Eyes PERRL, conjunctivae normal, anicteric sclerae ENMT external ear and nose normal, oropharynx normal Neck trachea midline, no thyromegaly Respiratory normal respiratory effort, lungs clear to auscultation Cardiovascular Rate/Rhythm: regular rate and + irregularly irregular Heart Sounds: normal S1 and normal S2; no murmur Extremities: normal capillary refill; no edema Gastrointestinal (Abdomen) normal bowel sounds, soft, nontender, no hepatosplenomegaly Musculoskeletal no cyanosis or clubbing, extremities motor strength 5/5 Skin + rash (petechial rash lower extremities bilaterally) Neurologic patellar DTR's 2+ bilat, sensation intact and PERRL, EOMI, accommodation nl, no face palsy, no dysarthria Psychiatric A+Ox3, euthymic affect Lymphatic no cervical or axillary lymphadenopathy Discharge Data Allergies Allergy/AdvReac Type Severity Reaction Status Date / Time Penicillins Allergy Severe THROAT Verified 06/02/20 09:47 SWELLING, BREATHING PROBLEMS shellfish derived Allergy Severe BREATHING Verified 06/02/20 09:47 PROBLEMS, VOMITING DO Inhibitors Allergy Unknown UNKNOWN Verified 06/02/20 09:47 acetaminophen Allergy Unknown "bleeding Verified 06/02/20 09:47 from bowels" aloe Allergy Unknown Rash Verified 06/02/20 09:47 ARB-Angiotensin Receptor Allergy Unknown UNKNOWN Verified 06/02/20 09:47 Antagonist hydrochlorothiazide Allergy Unknown UNKNOWN Verified 06/02/20 09:47 Iodinated Contrast Media Allergy Unknown BREATHING Verified 06/02/20 09:47 PROBLEMS VOMITING diltiazem Allergy Verified 06/02/20 09:47 prednisolone acetate, AdvReac irritablity, Verified 06/02/20 09:47 micronized sleepessness Calcium Channel Blockers Allergy Unknown edema Uncoded 06/02/20 09:47 Consultations 07/19/20 15:20 Consult Case Management - Discharge Planning Routine Consult Hematology Routine Hospital Course (1) Acute ITP: plts up to 18k, no evidence of bleeding or significant bruising has petechiae over lower extremities received IVIG 60,000 mg on 07/19 and 07/20 will try Nplate today, 1mcg/kg SQ x 1 dose can go home, repeat CBC early next week, follow up with hematology for repeat Nplate dosing as needed (2) Atrial fibrillation: went into afib 07/19 in the evening, this is new diagnosis Atenolol changed to metoprolol for better rate control increase metoprolol to 50mg BID, HR in the 80's at rest check echo -- normal EF, no significant valve disease no need for cardiology consult at this time anticoagulation is contraindicated due to plts of 18k discharge home on metoprolol, follow up with PCP could consider referral to cardiology outpatient, perhaps consider cardioversion since anticoagulation is contraindicated (3) History of left mastectomy: h/o breast cancer had chemotherapy several years ago in remission (4) Iron deficiency anemia: Hb is stable (5) Hypercholesterolemia: diet controlled (6) HTN (hypertension): BP better controlled on metoprolol 130's systolic Total Time Total Time Spent Total Time Spent (In Minutes): 32 Total Time Includes: Examination of the Patient, Discharge Planning, Medication Reconciliation and Communication With Other Providers (Dr. Martinez) Discharge Plan Discharge Items Patient Disposition: Home - Self-Care Reason For Visit: ITP Discharge Diagnosis: ITP Atrial fibrillation Condition on Discharge: Good Activity: Resume your previous activity Non-emergency contact: Primary Care Provider and Specialist Call non-emergency contact if: you have any medication questions and your symptoms worsen Follow-up/Referrals: Anatoly Badillo III, MD [Primary Care Provider] - 07/28/20 10:00 am (one week) Inga Armstrong PA-C [Nurse Practitioner] - 07/27/20 1:10 pm (next week) Diet: Regular Addtl Attending Provider Instructions: Medications: - METOPROLOL: 50mg twice a day, this replaces Atenolol, changed to provide better heart rate control for atrial fibrillation ITP: platelet count slowly improving, up to 18 today from admission level of 5 treated with two doses of IVIG will get Nplate today prior to discharge hematology will arrange for further treatment with [facility] at [facility] follow up lab work on Sunday and follow up with Inga CERDA Atrial fibrillation new diagnosis, as we discussed your echocardiogram was normal, no valve disease, no heart failure heart rate is well controlled on metoprolol as we discussed, normally we use anticoagulation for stroke prevention, but with your ITP this is too high of a risk for bleeding please follow up with Dr. Badillo in 1-2 weeks for follow up he can refer you to a construction field engineer as outpatient but not urgent, your heart rate is well controlled Pending Studies at Discharge: No Stand-Alone Forms: My [employer], Smoking Cessation Medications and DC Order Prescriptions: New metoprolol tartrate 50 mg Tablet 50 mg PO BID 30 Days Qty: 60 RF: 3 Continued furosemide 20 mg tablet 20 mg PO DAILY PRN (Reason: edema) RF: 0 Discontinued atenolol 50 mg tablet 50 mg PO DAILY PRN (Reason: HTN) Qty: 90 RF: 3 Discharge Orders: Discharge Order (Routine); Ordered 07/22/20 Ordered By: Kamron Beard Admission Data Admit Date/Time: 07/19/20 15:19 Attending Provider: Kamron Beard Admit Provider: Kamron Beard Primary Care Provider: Anatoly Badillo III Other Providers: Dex Martinez V. Other Interventions: Discharge Summary Assessment (RN) Last Done: 07/22/20 11:18 Coding Level of Care Code D/C Day Management >30 mins Diagnoses Acute ITP D69.3 Atrial fibrillation I48.91 History of left mastectomy Z90.12 Iron deficiency anemia D50.9 Hypercholesterolemia E78.00 HTN (hypertension) I10 Hypertension type: essential hypertension
[2020-07-22] MEDS: POTASSIUM CHLORIDE CRTAB 20 MEQ TABCR PO SCH (11:04)
[2020-07-22] MEDS ORDERED: ROMIPLOSTIM SQ ONE ×2 (11:15→13:00)
== END 2020-07-22 11:45 | disposition home or self-care (01) | DRG 813 ==
LOC: 3N → 1E 07-20 04:05 → 2S 07-21 22:14